=== PATIENT | female | born 1940 | race Native Hawaiian/Other Pacific Islander ===

== ENCOUNTER → 2017-11-09 13:05 | Outpatient (REF) | payer OTHER, SELFPAY ==
[2017-11-09 13:14] LABS: Appearance Urine UA CLEAR; Bilirubin Urine UA NEGATIVE (NEGATIVE); Color Urine UA YELLOW; Glucose Urine UA NEGATIVE (Normal); Ketones Urine UA NEGATIVE (NEGATIVE); Leukocyte Esterase Urine UA NEGATIVE (NEGATIVE); Nitrite Urine UA Negative (Negative); Occult Blood Urine UA 1+ (Negative); Protein Urine UA NEGATIVE (Negative); Specific Gravity Urine UA 1.015 (1.000-1.035); Urobilinogen Urine UA 0.2 E.U./dL (0.2); pH Urine UA 6.5 (4.5-8.0)
[2017-11-09 13:50] LABS: RBC Urine 1-5/HPF (0-5/HPF); Squamous Epithelial Cell Urine 0-1 /HPF; WBC Urine 0-1/HPF (0-5/HPF)
[2017-11-09 13:51] LABS: Bacteria Urine Occasional (0-1); Culture Indicated Urine Cult Not Indicated
== END ==
LOC: LAB 13:05
PROVIDERS: Family Provider Family Medicine; PCP Family Medicine; Visit Provider Family Medicine
DX: R41.0 Disorientation, unspecified (principal); R30.0 Dysuria
CPT/HCPCS: 81001

== ENCOUNTER 2017-11-23 12:34 | Emergency (ER) | payer OTHER, SELFPAY ==
[2017-11-23] VITALS (11 sets, daily range): BP systolic 107–170; BP diastolic 51–75; PULSE 82–104; RESP 12–24; TEMP 37.3–37.7; O2SAT 94–100; BMI 22.6
--- NOTE | 2017-11-23 12:52 | DI.RAD.S_ITS ---
PROCEDURE: XR CHEST 1V INDICATIONS: suspected sepsis TECHNIQUE: One view of the chest was acquired. COMPARISON: [facility], , CHEST 1 VIEW, 01/04/2017, 5:29. FINDINGS: Surgical changes and devices: None. Lungs and pleura: No pleural effusions or pneumothorax. Lungs are clear. Mediastinum: Mediastinal contours appear normal. Heart size is normal. Bones and chest wall: No suspicious bony lesions. Overlying soft tissues appear unremarkable. IMPRESSION: Stable chest. No acute cardiopulmonary process is evident. Dictated by: Low Marrero M.D. on 11/23/2017 at 12:54 Approved by: Low Marrero M.D. on 11/23/2017 at 12:55
[2017-11-23] MEDS: SODIUM CHLORIDE 0.9% 1,000 ML 1000 ML IV ×2 (13:11→16:50)
[2017-11-23 13:16] LABS: Add Manual Diff / Slide Review NO; Basophils Percent Auto 0.5 % (0-2); Eosinophils Percent Auto 0.1 % (2-4); Hematocrit 36.6 % (36-46); Hemoglobin 12.6 g/dL (12.0-16.0); Lymphocytes Percent Auto 6.8 % (25-40); Mean Corpuscular HGB Conc 34.4 % (30-36); Mean Corpuscular Volume 87.2 fL (80-100); Monocytes Percent Auto 7.7 % (3-14); Neutrophils Absolute Auto 9900 /uL (3000-5900); Neutrophils Percent Auto 84.9 % (50-75); Platelet Count 209 X10^3/uL (150-400); Red Cell Distribution Width 15.1 % (11.6-14.8); White Blood Cell Count 11.6 X10^3/uL (4.5-11.0)
--- NOTE | 2017-11-23 13:19 | ED.WEAKNESS ---
HPI - Weakness General Chief complaint: Weakness Stated complaint: DIZZINESS,CONFUSION,WEAKNESS Time Seen by Provider: 11/23/17 13:00 Source: patient and family Mode of arrival: ambulatory Limitations: no limitations History of Present Illness HPI Narrative: Patient is a 77-year-old female presenting with decreasing mental status and weakness. She is an extremely poor historian. Her nephew is here with her. Stating that she has been weaker and more confused over the last 2 days. Today she woke up and was shivering cold he put her by the fireplace she then fell asleep and needed assistance going to the bathroom, which is abnormal. Says the she then had a temperature of 102?. She overall has no complaints. She is having regular bowel movements no real pain. She has a known type 1 choledochocyst. And 2015 she did not want surgery. 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 Related Data Home Medications Medication Instructions Recorded Confirmed aspirin 81 mg PO QDAY #0 07/09/16 11/23/17 Allergies Allergy/AdvReac Type Severity Reaction Status Date / Time shellfish derived Allergy Mild HIVES Verified 11/23/17 12:51 [SHELLFISH DERIVED] Review of Systems Review of Systems All systems reviewed & are unremarkable except as noted in HPI and below and unobtainable due to mental status (Poor historian) Constitutional Reports body ache(s) and Reports fever(s) (Reported 102 at home) ENT Ears, Nose, Mouth, and Throat: Denies change in voice, Denies neck pain and Denies sore throat Cardiovascular Denies chest pain, Denies irregular heart rhythm, Denies lightheadedness, Denies palpitations, Denies dyspnea, Denies dyspnea on exertion and Denies orthopnea Respiratory Denies cough, Denies dyspnea, Denies dyspnea on exertion and Denies wheezing Musculoskeletal Denies back pain, Denies joint swelling and Denies neck pain Integumentary/Breasts Denies pruritus, Denies erythema, Denies rash and Denies wounds Neurologic Reports confusion and Reports memory loss Psychiatric Reports confusion and Reports memory loss Endocrine Denies palpitations Allergic/Immunologic Denies wheezing PFSH Medical History Choledocholithiasis (Acute) Hypercholesteremia (Chronic Unknown) Surgical History History of tonsillectomy Status post surgery (09/22/15) Social History Smoking Status: Never smoker Exam Initial Vital Signs Initial Vital Signs: Vital Signs Temperature 99.6 F 11/23/17 12:45 Pulse Rate 104 H 11/23/17 12:45 Respiratory Rate 24 11/23/17 12:45 Blood Pressure 139/73 H 11/23/17 12:45 Pulse Oximetry 99 11/23/17 12:45 Const General: lethargic Nutritional Appearance: average body habitus Neck Neck: normal visual inspection, trachea midline, No lymphadenopathy, No midline deformity and No JVD Lymphatic: No lymphedema Chest Chest: normal inspection of the chest Resp Effort & Inspection: normal respiratory effort, able to speak in complete sentences, no respiratory distress and no use of accessory muscles Auscultation: clear to auscultation bilaterally, no rales, no rhonchi and no wheezes Cardio Rate: regular rate Rhythm: regular rhythm Heart Sounds: no click, no gallops, no murmurs and no rubs Pulses: normal peripheral pulses GI Inspection: non-distended Palpation: soft, no hepatosplenomegaly, No guarding, No pulsatile mass and tender (Mild right upper quadrant pain no guarding no rebound) Auscultation: normal bowel sounds Skin General: no rashes or lesions noted, No jaundice and No petechiae Neuro General: alert, awake, gait normal, no focal motor deficits and CN's II-XI intact bilaterally Cognition: abnormal cognition Speech: speech normal Motor: strength 5/5 throughout Sensory Exam: no sensory deficits noted Course Orders Ordered: ED Orders 11/23/17 12:52 XR chest 1V Stat Blood Culture Stat 11/23/17 13:01 Complete Blood Count AUTO DIFF Stat Comprehensive Metabolic Panel Stat Lactate (Lactic Acid) Stat Lipase Stat Partial Thromboplastin Time Stat Procalcitonin Stat Prothrombin Time INR Stat 11/23/17 14:23 CT abdomen pelvis w con Stat 11/23/17 14:30 Urine Microscopic Stat Sodium Chloride (Normal Saline 0.9%) 1,000 mls @ 200 mls/hr IV CONT VIDYA Last Admin: 11/23/17 18:25 Dose: 200 mls/hr Discontinued Medications Acetaminophen (Tylenol) 650 mg PO NOW ONE Stop: 11/23/17 16:31 Last Admin: 11/23/17 16:49 Dose: 650 mg Sodium Chloride (Normal Saline 0.9%) 1,000 mls @ 1,000 mls/hr IV BOLUS ONE Stop: 11/23/17 13:51 Last Infusion: 11/23/17 14:30 Dose: 0 mls/hr Admin: 11/23/17 13:11 Dose: 1,000 mls/hr Piperacillin/Tazobactam/Dextrose (Zosyn) 3.375 gm in 50 mls @ 100 mls/hr IV NOW ONE Stop: 11/23/17 16:23 Last Infusion: 11/23/17 16:50 Dose: 0 mls/hr Admin: 11/23/17 16:07 Dose: 100 mls/hr Sodium Chloride (Normal Saline 0.9%) 1,000 mls @ 1,000 mls/hr IV BOLUS ONE Stop: 11/23/17 17:28 Last Infusion: 11/23/17 18:07 Dose: 0 mls/hr Admin: 11/23/17 16:50 Dose: 1,000 mls/hr Morphine Sulfate (Morphine) 2 mg IV NOW ONE Stop: 11/23/17 17:25 Last Admin: 11/23/17 17:26 Dose: 2 mg Morphine Sulfate (Morphine) 2 mg IV NOW ONE Stop: 11/23/17 19:08 Last Admin: 11/23/17 19:28 Dose: 2 mg Consultations Consultation #1: Dr. Martha pino, general surgery [facility] has been consulted in regards to the CT result. All concerned that there may actually be infection in the the gallbladder. She will also need an ERCP which is unavailable here. Recommend transferring to further facility. Concern for ascending cholangitis. Vital Signs - 8 hr 11/23/17 12:45 11/23/17 13:07 11/23/17 13:45 Temperature 99.6 F Pulse Rate 104 H 104 H 92 H Respiratory Rate 24 22 15 Blood Pressure 139/73 H Blood Pressure [Right Arm] 143/75 H 130/57 H Pulse Oximetry 99 97 11/23/17 14:32 11/23/17 15:14 11/23/17 15:37 Temperature 99.1 F Pulse Rate 98 H 96 H Respiratory Rate 12 14 Blood Pressure Blood Pressure [Right Arm] 107/51 L 121/67 H Pulse Oximetry 99 94 11/23/17 16:16 11/23/17 16:45 11/23/17 17:41 Temperature 99.9 F H Pulse Rate 104 H 97 H 90 Respiratory Rate 22 21 12 Blood Pressure Blood Pressure [Right Arm] 144/72 H 123/52 H Pulse Oximetry 97 96 11/23/17 18:30 11/23/17 19:07 Temperature Pulse Rate 82 88 Respiratory Rate 13 23 Blood Pressure Blood Pressure [Right Arm] 130/70 H 170/66 H Pulse Oximetry 100 94 MDM - Weakness Lab Data Result diagrams: 11/23/17 13:01 11/23/17 13:01 Lab Results 11/23/17 11/23/17 11/23/17 Range/Units 13:01 13:01 13:01 WBC 11.6 H (4.5-11.0) X10^3/uL RBC 4.20 (4.0-5.2) X10^6/uL Hgb 12.6 (12.0-16.0) g/dL Hct 36.6 (36-46) % MCV 87.2 (80-100) fL MCH 30.0 (26-34) PG MCHC 34.4 (30-36) % RDW 15.1 H (11.6-14.8) % Plt Count 209 (150-400) X10^3/uL Neut % (Auto) 84.9 H (50-75) % Lymph % (Auto) 6.8 L (25-40) % Winkler % (Auto) 7.7 (3-14) % Eos % (Auto) 0.1 L (2-4) % Baso % (Auto) 0.5 (0-2) % Neut # (Auto) 9900 H (3928-8860) /uL PT 11.6 (10.1-12.7) SECONDS INR 1.1 (0.9-1.3) APTT 30 (26.4-36.2) SECONDS Sodium (137-145) mmol/L Potassium (3.4-5.1) mmol/L Chloride (98-107) mmol/L Carbon Dioxide (22-32) mmol/L BUN (7-17) mg/dL Creatinine (0.52-1.04) mg/dL Estimated GFR (>60) mL/min BUN/Creatinine Ratio (6-22) Glucose (80-110) mg/dL Lactate (0.7-2.1) mmol/L Calcium (8.4-10.2) mg/dL Total Bilirubin (0.2-1.3) mg/dL AST (14-36) IU/L ALT (9-52) IU/L Alkaline Phosphatase (38-126) U/L Total Protein (6.3-8.2) g/dL Albumin (3.5-5.0) g/dL Globulin (1.7-4.1) g/dL Albumin/Globulin Ratio (1.0-2.8) Lipase (23-300) U/L Procalcitonin 0.54 H (<0.5) ng/mL Urine RBC (0-5/HPF) Urine WBC (0-5/HPF) Urine Bacteria (None) Ur Culture Indicated? Micro UA Comment 11/23/17 11/23/17 11/23/17 Range/Units 13:01 13:01 14:30 WBC (4.5-11.0) X10^3/uL RBC (4.0-5.2) X10^6/uL Hgb (12.0-16.0) g/dL Hct (36-46) % MCV (80-100) fL MCH (26-34) PG MCHC (30-36) % RDW (11.6-14.8) % Plt Count (150-400) X10^3/uL Neut % (Auto) (50-75) % Lymph % (Auto) (25-40) % Winkler % (Auto) (3-14) % Eos % (Auto) (2-4) % Baso % (Auto) (0-2) % Neut # (Auto) (6976-5066) /uL PT (10.1-12.7) SECONDS INR (0.9-1.3) APTT (26.4-36.2) SECONDS Sodium 137 (137-145) mmol/L Potassium 3.9 (3.4-5.1) mmol/L Chloride 100 (98-107) mmol/L Carbon Dioxide 24 (22-32) mmol/L BUN 17 (7-17) mg/dL Creatinine 0.70 (0.52-1.04) mg/dL Estimated GFR > 60.0 (>60) mL/min BUN/Creatinine Ratio 24.3 H (6-22) Glucose 142 H (80-110) mg/dL Lactate 1.5 (0.7-2.1) mmol/L Calcium 9.5 (8.4-10.2) mg/dL Total Bilirubin 0.8 (0.2-1.3) mg/dL AST 103 H (14-36) IU/L ALT 87 H (9-52) IU/L Alkaline Phosphatase 224 H (38-126) U/L Total Protein 8.3 H (6.3-8.2) g/dL Albumin 4.1 (3.5-5.0) g/dL Globulin 4.2 H (1.7-4.1) g/dL Albumin/Globulin Ratio 1.0 (1.0-2.8) Lipase 174 (23-300) U/L Procalcitonin (<0.5) ng/mL Urine RBC 5-10/hpf H (0-5/HPF) Urine WBC None seen (0-5/HPF) Urine Bacteria None seen (None) Ur Culture Indicated? Cult not indicated Micro UA Comment Not Reportable Imaging Data CT scan - abdomen: Radiologist's impression: PROCEDURE: CT ABDOMEN PELVIS W CON INDICATIONS: Known gallstone now it is increasing pain and confusion TECHNIQUE: After the administration of intravenous contrast, 5 mm thick sections acquired from the diaphragm to the symphysis. 5 mm coronal and sagittal reformats were acquired. For radiation dose reduction, the following was used: automated exposure control, adjustment of mA and/or kV according to patient size. COMPARISON: [facility], US, ABDOMEN COMPLETE, 01/04/2017, 6:48. [facility], CT, ABDOMEN/PELVIS WITH CONTRAST, 07/09/2015, 11:38. FINDINGS: Image quality: Excellent. ABDOMEN: Lung bases: Lung bases are clear. Heart size is normal. Solid organs: Liver is normal in size. Hepatic cysts are unchanged. Gallbladder is mildly distended. The common bile duct is markedly distended, measuring 36 mm in greatest transverse dimension, compared to 18 mm on prior exam. There are multiple stones in the dependent duct. There is increased density in the distal duct. Significant intra-hepatic biliary dilation is present. Biliary system is non dilated. Pancreas demonstrates several foci of hypoattenuation, new compared to prior exam. The largest measures 7 mm. Spleen is normal in size and enhancement. No adrenal nodules. Kidneys demonstrate normal size and enhancement, without hydronephrosis. Peritoneum and bowel: Bowel loops demonstrate normal wall thickness and caliber. No free fluid or air. Nodes and vessels: No retroperitoneal or mesenteric adenopathy by size criteria. Aorta and inferior vena cava are normal in size. Miscellaneous: No ventral hernias. PELVIS: Genitourinary: Bladder wall thickness is normal. Miscellaneous: No inguinal hernias or adenopathy. Previously identified low attenuation focus within the right lower pelvis is no longer visualized. Bones: No suspicious bony lesions. No vertebral body compression fractures. IMPRESSION: 1. Markedly distended common bile duct with intrahepatic biliary dilation as described above. Stones are identified within the common bile duct as well as the distal portion near the stricture. Overall appearance is most suggestive of choledocholithiasis with obstruction. Further evaluation with MRCP may be obtained as clinically indicated. 2. Interval development of low attenuation foci within the pancreas as above without gross pancreatic ductal dilation. These are overall nonspecific in appearance. However, IPMT should be considered. Dictated by: Taylor Chen M.D. on 11/23/2017 at 14:48 Chest x-ray: Radiologist's impression: PROCEDURE: XR CHEST 1V INDICATIONS: suspected sepsis TECHNIQUE: One view of the chest was acquired. COMPARISON: [facility], CHEST 1 VIEW, 01/04/2017, 5:29. FINDINGS: Surgical changes and devices: None. Lungs and pleura: No pleural effusions or pneumothorax. Lungs are clear. Mediastinum: Mediastinal contours appear normal. Heart size is normal. Bones and chest wall: No suspicious bony lesions. Overlying soft tissues appear unremarkable. IMPRESSION: Stable chest. No acute cardiopulmonary process is evident. MDM Narrative Medical decision making narrative: Patient's history of increasing confusion last 2 days with her objective fever of 102 though she was in front of the fireplace and CT are concerning for acute ascending cholangitis. She does wince and appear to be in pain every time she moves. She is quite stoic and will not complain of pain. I do not believe her to be competent or understand that she needs surgery. Her nephew who says he is the durable power of marketing traffic coordinator she has no children her , who is now agreeable to surgery. I have now received records from previous visit it appears to be at [place]. 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 It looks is the they wanted to do a [place] however 1 week before the surgery the nephew said that she changed her mind and did not wanted. He now says that they are agreeable to this. I have spoken with [facility] surgery they are unable to do an ERCP something which she will also likely need. I have spoken with the [place] doctor who has agreed and help her arrange transfer down to [facility] [place]. She was initially becoming more tachycardic however IV fluid he have helped along with pain medication. She is not febrile in the ED she is given Tylenol to help pain. Patient certainly has concerning gallbladder, and will need further evaluation. Discharge Plan Departure Patient Disposition: [facility] Clinical Impression: Ascending cholangitis Prescriptions: No Action aspirin 81 MG tablet,delayed release (DR/EC) 81 mg PO QDAY Qty: 0 RF: 0
[2017-11-23 13:21] LABS: INR 1.1 (0.9-1.3); Prothrombin Time 11.6 SECONDS (10.1-12.7)
[2017-11-23 13:23] LABS: PTT Partial Thromboplastin Tim 30 SECONDS (26.4-36.2)
[2017-11-23 13:27] LABS: Alanine Aminotransferase 87 IU/L (9-52); Albumin 4.1 g/dL (3.5-5.0); Alkaline Phosphatase 224 U/L (38-126); Aspartate Aminotransferase 103 IU/L (14-36); BUN Creatinine Ratio 24.3 (6-22); Bilirubin Total 0.8 mg/dL (0.2-1.3); Blood Urea Nitrogen 17 mg/dL (7-17); Calcium 9.5 mg/dL (8.4-10.2); Carbon Dioxide 24 mmol/L (22-32); Chloride 100 mmol/L (98-107); Estimated Glomerular Filt Rate > 60.0 mL/min (>60); Globulin 4.2 g/dL (1.7-4.1); Glucose 142 mg/dL (80-110); HEMOLYSIS < 15 (0-50); Lactate (Lactic Acid) 1.5 mmol/L (0.7-2.1); Lipase 174 U/L (23-300); Potassium 3.9 mmol/L (3.4-5.1); Sodium 137 mmol/L (137-145); Total Protein 8.3 g/dL (6.3-8.2)
[2017-11-23 13:42] LABS: Procalcitonin 0.54 ng/mL (<0.5)
--- NOTE | 2017-11-23 14:23 | DI.CT.S_ITS ---
PROCEDURE: CT ABDOMEN PELVIS W CON INDICATIONS: Known gallstone now it is increasing pain and confusion TECHNIQUE: After the administration of intravenous contrast, 5 mm thick sections acquired from the diaphragm to the symphysis. 5 mm coronal and sagittal reformats were acquired. For radiation dose reduction, the following was used: automated exposure control, adjustment of mA and/or kV according to patient size. COMPARISON: [facility], US, ABDOMEN COMPLETE, 01/04/2017, 6:48. [facility], CT, ABDOMEN/PELVIS WITH CONTRAST, 07/09/2015, 11:38. FINDINGS: Image quality: Excellent. ABDOMEN: Lung bases: Lung bases are clear. Heart size is normal. Solid organs: Liver is normal in size. Hepatic cysts are unchanged. Gallbladder is mildly distended. The common bile duct is markedly distended, measuring 36 mm in greatest transverse dimension, compared to 18 mm on prior exam. There are multiple stones in the dependent duct. There is increased density in the distal duct. Significant intra-hepatic biliary dilation is present. Biliary system is non dilated. Pancreas demonstrates several foci of hypoattenuation, new compared to prior exam. The largest measures 7 mm. Spleen is normal in size and enhancement. No adrenal nodules. Kidneys demonstrate normal size and enhancement, without hydronephrosis. Peritoneum and bowel: Bowel loops demonstrate normal wall thickness and caliber. No free fluid or air. Nodes and vessels: No retroperitoneal or mesenteric adenopathy by size criteria. Aorta and inferior vena cava are normal in size. Miscellaneous: No ventral hernias. PELVIS: Genitourinary: Bladder wall thickness is normal. Miscellaneous: No inguinal hernias or adenopathy. Previously identified low attenuation focus within the right lower pelvis is no longer visualized. Bones: No suspicious bony lesions. No vertebral body compression fractures. IMPRESSION: 1. Markedly distended common bile duct with intrahepatic biliary dilation as described above. Stones are identified within the common bile duct as well as the distal portion near the stricture. Overall appearance is most suggestive of choledocholithiasis with obstruction. Further evaluation with MRCP may be obtained as clinically indicated. 2. Interval development of low attenuation foci within the pancreas as above without gross pancreatic ductal dilation. These are overall nonspecific in appearance. However, IPMT should be considered. Dictated by: Taylor Chen M.D. on 11/23/2017 at 14:48 Approved by: Taylor Chen M.D. on 11/23/2017 at 15:27
--- NOTE | 2017-11-23 14:29 | PC.NURSE ---
2 full asssit to get to commode. Unable to support weight. Continues to have no focal weakness.
[2017-11-23 14:38] LABS: Bacteria Urine None Seen; WBC Urine None Seen (0-5/HPF)
[2017-11-23 14:44] LABS: Culture Indicated Urine Cult Not Indicated; RBC Urine 5-10/HPF (0-5/HPF)
[2017-11-23] MEDS: PIPERACILLIN-TAZO 3.375 GM/50 ML FROZ.PIGGY IV (16:07)
--- NOTE | 2017-11-23 16:16 | PC.NURSE ---
Continues to deny pain but winces w/ movement. Continues to require full assist to get oob to commode. Repositioned for comfort, encouraged to call for needs.
[2017-11-23] MEDS: ACETAMINOPHEN 325 MG TABLET 650 MG PO (16:49)
[2017-11-23] MEDS: MORPHINE 4 MG/ML INJ 2 MG IV ×2 (17:26→19:28)
[2017-11-23] MEDS: SODIUM CHLORIDE 0.9% 1,000 ML 200 ML IV (18:25)
[2017-11-24 05:34] LABS: Acinetobacter baumannii Not Detected (Not Detect); Enterococcus species Not Detected (Not Detect); Listeria monocytogenes Not Detected (Not Detect); Staphylococcus species Not Detected (Not Detect); Streptococcus agalactiae (Gr B Not Detected (Not Detect); Streptococcus pneumonia Not Detected (Not Detect); Streptococcus pyogenes (Gr A) Not Detected (Not Detect); Streptococcus species Not Detected (Not Detect)
[2017-11-24 05:35] LABS: Enterobacter cloacae complex Not Detected (Not Detect); Enterobacteriaceae species Detected (Not Detect); KPC (carbapenem-resist gene) Not Detected (Not Detect); Proteus species Not Detected (Not Detect)
[2017-11-24 05:36] LABS: Candida albicans Not Detected (Not Detect); Candida glabrata Not Detected (Not Detect); Candida krusei Not Detected (Not Detect); Candida parapsilosis Not Detected (Not Detect); Candida tropicalis Not Detected (Not Detect); E. coli Detected (Not Detect); Haemophilus influenzae Not Detected (Not Detect); Neisseria meningitidis Not Detected (Not Detect); Pseudomonas aeruginosa Not Detected (Not Detect); Serratia marcescens Not Detected (Not Detect)
== END 2017-11-23 19:46 | disposition short-term general hospital (02) ==
PROVIDERS: Emergency Provider Emergency Medicine; Family Provider Family Medicine; PCP Family Medicine
DX: K83.0 Cholangitis (principal)
CPT/HCPCS: 36415; 36591; 71045; 74177; 80053; 81003; 81015; 83605; 83690; 84145; 85025; 85610; 85730; 87040; 87077; 87150; 87186; 87205; 96361; 96365; 96375; 96376; 99285; J2270; J2543; Q9967

== ENCOUNTER 2019-03-13 23:09 | Observation (INO) | payer OTHER, SELFPAY ==
--- NOTE | 2019-03-13 23:20 | ED_ITS ---
HPI - Dizziness General Chief Complaint: Syncope Stated Complaint: fall at home dizziness Time Seen by Provider: 03/13/19 23:16 Source: family Mode of arrival: Family Vehicle Limitations: altered mental status History of Present Illness HPI Narrative: The patient was at home with family. About 45 minutes prior to a rrival, she suddenly collapsed, falling from her chair to the floor. She has a history of dementia. She also has a history of intermittent dizziness. When she fell to the floor she was unresponsive. Her [id number] noted snoring sounds, but the patient was otherwise unresponsive. CPR was initiated, 911 was called. Her daughter thinks she was administering CPR for 5 minutes prior to EMS arriving. She stopped CPR to open the door when EMS arrived. At that time she noted that the patient was breathing normally. Paramedics arrived. Patient is awake and responsive. She arrives by private vehicle. The patient is now complaining of only chills. She denies recent illness. She has no headache, visual changes, or speech changes. She denies chest pain or palpitations. She has no dyspnea. She has no nausea vomiting. She denies peripheral weakness or numbness. Her family did not notice seizure-like activity. She has a history of memory issues. She has no history of stroke, TIA or cardiac issues. She does have dementia. She denies recent illness. Related Data Home Medications Medication Instructions Recorded Confirmed aspirin 81 mg PO QDAY #0 07/09/16 10/14/18 Previous Rx's Medication Instructions Recorded polymyxin B sulfate 10,000 2 drp OPHTHALMIC (EYE) QID #10 ml 10/14/18 unit-trimethoprim 1 mg/mL eye drops Allergies Allergy/AdvReac Type Severity Reaction Status Date / Time shellfish derived Allergy Mild HIVES Verified 10/14/18 18:29 [SHELLFISH DERIVED] Review of Systems Review of Systems ROS Unobtainable: All systems reviewed & are unremarkable except as noted in HPI and below Constitutional Constitutional: Denies chills, Denies fever(s), Denies headache(s), Denies lethargy, Reports snoring (See HPI) and Denies weakness Eyes Eyes: Denies change in vision and Denies loss of vision ENT Ears, Nose, Mouth, and Throat: Denies vertigo, Reports dizziness and Denies headache(s) Cardiovascular Cardiovascular: Denies chest pain, Denies irregular heart rhythm, Denies lightheadedness, Denies palpitations, Denies dyspnea and Denies orthopnea Respiratory Respiratory: Denies cough, Denies dyspnea and Reports snoring (See HPI) Gastrointestinal Gastrointestinal: Denies abdominal pain, Denies change in bowel habits, Denies diarrhea, Denies nausea and Denies vomiting Genitourinary Genitourinary: Denies flank pain, Denies urinary incontinence and Denies urinary urgency Musculoskeletal Musculoskeletal: Denies back pain, Denies numbness and Denies tingling Integumentary/Breasts Skin/Breast: Denies erythema, Denies rash and Denies wounds Neurologic Neurologic: Denies confusion, Denies vertigo, Reports dizziness, Denies headache (s), Denies loss of vision, Denies numbness, Denies tingling and Denies weakness Psychiatric Psychiatric: Denies anxiety, Denies confusion and Denies depression Endocrine Endocrine: Denies palpitations [facility] Medical History (Updated 03/14/19 @ 02:14 by Uri Brennan MD) Choledocholithiasis (Acute) Dementia (Acute) Dermoid cyst of right ovary (Resolved ~07/2015) Endometrial polyp (Resolved ~07/2015) Hypercholesteremia (Chronic Unknown) Surgical History History of tonsillectomy Hx of bilateral salpingo-oophorectomy (Resolved 09/2015) Hx of dilation and curettage (Resolved 09/2015) Status post surgery (09/22/15) Family History (System 12/23/17 @ 14:37 by Essence Finley) Brother Hypertension Father No problems noted. Mother No problems noted. Social History (System 12/23/17 @ 14:37 by Essence Finley) marital status: Smoking Status: Never smoker alcohol intake: never substance use type: does not use Family History Brother Hypertension Father No problems noted. Mother No problems noted. Social History marital status: household members: family Smoking Status: Never smoker alcohol intake: never substance use type: does not use Exam Initial Vital Signs Initial Vital Signs: Vital Signs Temperature 97.9 F 03/13/19 23:21 Pulse Rate 60 03/13/19 23:21 Respiratory Rate 18 03/13/19 23:21 Blood Pressure 121/58 L 03/13/19 23:21 Pulse Oximetry 96 03/13/19 23:21 Const General: cooperative and well developed Nutritional Appearance: well nourished Orientation: alert, awake, oriented to person, oriented to place, not oriented to time and confused Other: Her mental status is at baseline. [facility] Head: normocephalic and atraumatic Ears: external ears normal and TM's normal bilaterally Nose: external nose normal Face and sinus: sinuses nontender and face symmetric Mouth: oral mucosae normal and moist mucous membranes Throat: posterior oropharynx normal and tonsils normal Eyes General: appearance normal, both eyes and all related structures Eyelids: eyelids normal Conjunctivae: conjunctivae normal Sclera: sclerae normal Pupils: PERRL EOM: EOM intact bilaterally Neck Neck: normal visual inspection, trachea midline, No lymphadenopathy, No midline deformity and No JVD Lymphatic: No lymphedema Chest Chest: normal inspection of the chest Resp Effort & Inspection: normal respiratory effort, able to speak in complete sentences, no respiratory distress and no use of accessory muscles Auscultation: clear to auscultation bilaterally, no rales, no rhonchi and no wheezes Cardio Rate: regular rate Rhythm: regular rhythm Heart Sounds: no click, no gallops, no murmurs and no rubs Pulses: normal peripheral pulses GI Inspection: non-distended Palpation: soft, no hepatosplenomegaly, No guarding, No pulsatile mass and No tender Auscultation: normal bowel sounds Back/Spine/Pelvis Back: No back tenderness and No CVA tenderness Skin General: no rashes or lesions noted and No petechiae Neuro General: alert, oriented (Person and place) and no focal motor deficits Speech: speech normal Motor: muscle tone normal throughout Sensory Exam: no sensory deficits noted Extrem General: full ROM, no pedal edema and no calf tenderness Psych Appearance: well kempt Mental Status: mental status grossly normal Attitude: cooperative Thought Content: normal Course Course Course Narrative: The patient has been asymptomatic since arrival. Although CPR was initiated, it is unclear if it was necessary. She arrived POV. She has been alert, and asymptomatic since arrival. There is no evidence of acute neurologic deficits. There is no suggestion of seizure at the scene. There is no evidence of arrhythmia on the monitoring done here in the ER. She has no significant electrolyte abnormalities. She will be admitted to the hospitalist, ADRIANA Dickson. Orders Ordered: ED Orders 03/13/19 23:30 EKG-12 Lead Stat 03/13/19 23:31 CT head/brain wo con Stat XR chest 1V Stat 03/13/19 23:40 Complete Blood Count AUTO DIFF Stat Comprehensive Metabolic Panel Stat Magnesium Stat Prothrombin Time INR Stat Troponin & CK Cardiac Panel Stat 03/14/19 EKG-12 Lead Stat 03/14/19 02:02 Prolactin Stat Acetaminophen (Tylenol) 650 mg PO Q6HR PRN PRN Reason: As Needed for Fever/Mild Pain Hydrocodone Bitart/Acetaminophen ([place] 5/325) 1 tab PO Q4HR PRN PRN Reason: Pain, Moderate (4-6) Al Hydrox/Mg Hydrox/Simethicone (Maalox Plus) 30 ml PO Q6HR PRN PRN Reason: Dyspepsia Bisacodyl (Dulcolax) 10 mg DC DAILY PRN PRN Reason: Constipation Calcium Carbonate (Tums) 1,000 mg PO Q4HR PRN PRN Reason: Dyspepsia Docusate Sodium (Colace) 100 mg PO BID PRN PRN Reason: Constipation Ondansetron HCl (Zofran Odt) 4 mg PO Q8HR PRN PRN Reason: Nausea And Vomiting Vital Signs Vital signs: Vital Signs - 8 hr 03/13/19 23:21 03/14/19 01:00 03/14/19 01:30 Temperature 97.9 F Pulse Rate 60 72 72 Respiratory Rate 18 16 14 Blood Pressure 121/58 L Blood Pressure [Left Arm] 101/42 L 121/59 L Pulse Oximetry 96 99 100 03/14/19 02:00 Temperature Pulse Rate 66 Respiratory Rate 15 Blood Pressure Blood Pressure [Left Arm] 107/57 L Pulse Oximetry 100 MDM - Dizziness Lab Data Result diagrams: 03/13/19 23:40 03/13/19 23:40 Labs: Lab Results 03/13/19 03/13/19 03/13/19 Range/Units 23:40 23:40 23:40 WBC 6.2 (4.5-11.0) X10^3/uL RBC 4.18 (4.0-5.2) X10^6/uL Hgb 12.4 (12.0-16.0) g/dL Hct 37.1 (36-46) % MCV 88.7 (80-100) fL MCH 29.6 (26-34) PG MCHC 33.4 (30-36) % RDW 15.0 H (11.6-14.8) % Plt Count 190 (150-400) X10^3/uL Neut % (Auto) 48.3 L (50-75) % Lymph % (Auto) 38.6 (25-40) % [place] % (Auto) 8.1 (3-14) % Eos % (Auto) 3.6 (2-4) % Baso % (Auto) 1.4 (0-2) % Neut # (Auto) 3000 (9523-7484) /uL Lymph # (Auto) 2400 (8554-3140) /uL [place] # (Auto) 500 (0-900) /uL Eos # (Auto) 200 (0-450) /uL Baso # (Auto) 100 (0-100) /uL PT 11.6 (10.1-12.7) SECONDS INR 1.0 (0.9-1.3) Sodium 140 (137-145) mmol/L Potassium 4.4 (3.4-5.1) mmol/L Chloride 103 (98-107) mmol/L Carbon Dioxide 30 (22-32) mmol/L BUN 15 (7-17) mg/dL Creatinine 1.00 (0.52-1.04) mg/dL Estimated GFR 53.6 L (>60) mL/min BUN/Creatinine Ratio 15.0 (6-22) Glucose 114 H (80-110) mg/dL Calcium 9.4 (8.4-10.2) mg/dL Magnesium 2.2 (1.6-2.3) mg/dL Total Bilirubin 0.4 (0.2-1.3) mg/dL AST 19 (14-36) IU/L ALT < 6 L (9-52) IU/L Alkaline Phosphatase 84 (38-126) U/L Total Creatine Kinase 61 (30-135) U/L CK-MB (CK-2) TNP CK-MB (CK-2) Rel Index TNP Troponin I < 0.012 (0.01-0.034) ng/mL Total Protein 7.6 (6.3-8.2) g/dL Albumin 3.9 (3.5-5.0) g/dL Globulin 3.7 (1.7-4.1) g/dL Albumin/Globulin Ratio 1.1 (1.0-2.8) Prolactin (3.0-18.6) ng/mL 03/13/19 Range/Units 23:40 WBC (4.5-11.0) X10^3/uL RBC (4.0-5.2) X10^6/uL Hgb (12.0-16.0) g/dL Hct (36-46) % MCV (80-100) fL MCH (26-34) PG MCHC (30-36) % RDW (11.6-14.8) % Plt Count (150-400) X10^3/uL Neut % (Auto) (50-75) % Lymph % (Auto) (25-40) % [place] % (Auto) (3-14) % Eos % (Auto) (2-4) % Baso % (Auto) (0-2) % Neut # (Auto) (0745-4309) /uL Lymph # (Auto) (4429-4477) /uL [place] # (Auto) (0-900) /uL Eos # (Auto) (0-450) /uL Baso # (Auto) (0-100) /uL PT (10.1-12.7) SECONDS INR (0.9-1.3) Sodium (137-145) mmol/L Potassium (3.4-5.1) mmol/L Chloride (98-107) mmol/L Carbon Dioxide (22-32) mmol/L BUN (7-17) mg/dL Creatinine (0.52-1.04) mg/dL Estimated GFR (>60) mL/min BUN/Creatinine Ratio (6-22) Glucose (80-110) mg/dL Calcium (8.4-10.2) mg/dL Magnesium (1.6-2.3) mg/dL Total Bilirubin (0.2-1.3) mg/dL AST (14-36) IU/L ALT (9-52) IU/L Alkaline Phosphatase (38-126) U/L Total Creatine Kinase (30-135) U/L CK-MB (CK-2) CK-MB (CK-2) Rel Index Troponin I (0.01-0.034) ng/mL Total Protein (6.3-8.2) g/dL Albumin (3.5-5.0) g/dL Globulin (1.7-4.1) g/dL Albumin/Globulin Ratio (1.0-2.8) Prolactin 42.2 H (3.0-18.6) ng/mL Imaging Data Chest x-ray: Attestation: I personally reviewed and interpreted this imaging study as follows: My impression: Normal CT scan - head: Radiologist's impression: No acute findings. ECG Data Attestation: I personally reviewed and interpreted this ECG as follows: (Normal sinus rhythm rate 66 beats per minute. Normal intervals. No ectopy. Normal study.) Critical Care Time Critical Care Time Critical Care Time: Yes Total Critical Care Time: 45 Attestation: Care included initial evaluation, and history from the patient and her family. Care included review of past medical records, evaluation of lab and radiology information, discussion of admission decision with the family, and consultation with the admitting hospitalist. Discharge Plan Departure Patient Disposition: Admitted as Observation Clinical Impression: Syncope Qualifiers: Syncope type: unspecified Qualified Code(s): R55 - Syncope and collapse Discharge Date/Time: 03/14/19 02:28 Admit Date/Time: 03/14/19 02:03 Admit Provider: Ayan Dickson
[2019-03-13 23:21] VITALS: BP 121/58; PULSE 60; RESP 18; TEMP 36.6; O2SAT 96
--- NOTE | 2019-03-13 23:30 | PC.NURSE ---
Her nephew said she falls frequently,at least once a month,and she has dementia,she apparently slumped to floor from kitchen table tonight.She was noted to be snoringand her niece started cpr,because I am trained in itshe said.Medics were on scene and she came her POV.
--- NOTE | 2019-03-13 23:31 | DI.CT.S_ITS ---
PROCEDURE: CT HEAD/BRAIN WO CON INDICATIONS: Syncope TECHNIQUE: Noncontrast 4.5 mm thick angled axial sections acquired from the foramen magnum to the vertex, with coronal and sagittal reformats. For radiation dose reduction, the following was used: automated exposure control, adjustment of mA and/or kV according to patient size. COMPARISON: [facility], CT, HEAD WITHOUT CONTRAST, 07/09/2016, 18:45. [facility], MR, MR BRAIN WITHOUT CONTRAST, 12/21/2018, 8:45. FINDINGS: Image quality: Excellent. CSF spaces: Basal cisterns are patent. No extra-axial fluid collections. Mild ventriculomegaly is noted which is stable compared to prior exams. Brain: No intracranial bleeds or masses. There is cerebral volume loss for age, with resultant ventricular and sulcal prominence. There are periventricular and deep white matter chronic small vessel ischemic changes. There is intracranial internal carotid artery and vertebral artery atherosclerosis. Skull and face: Calvarium and visualized facial bones appear intact, without suspicious lesions. Sinuses: Visualized sinuses and mastoids are clear. IMPRESSION: No acute intracranial disease process. Dictated by: Madeleine Tomlin MD, PhD on 03/14/2019 at 7:07 Approved by: Madeleine Tomlin MD, PhD on 03/14/2019 at 7:09
--- NOTE | 2019-03-13 23:31 | DI.RAD.S_ITS ---
PROCEDURE: XR CHEST 1V INDICATIONS: Syncope TECHNIQUE: One view of the chest was acquired. COMPARISON: [facility], CR, XR CHEST 1V, 11/23/2017, 13:09. FINDINGS: Surgical changes and devices: None. Lungs and pleura: Lungs are clear. Small left-sided pleural effusion. No pneumothorax. Mediastinum: Mediastinal contours appear normal. Heart size is normal. Bones and chest wall: No suspicious bony lesions. Overlying soft tissues appear unremarkable. IMPRESSION: Small left-sided pleural effusion. Dictated by: Madeleine Tomlin MD, PhD on 03/14/2019 at 7:59 Approved by: Madeleine Tomlin MD, PhD on 03/14/2019 at 8:00
[2019-03-13 23:53] LABS: Add Manual Diff / Slide Review NO; Basophils Absolute Auto 100 /uL (0-100); Basophils Percent Auto 1.4 % (0-2); Eosinophils Absolute Auto 200 /uL (0-450); Eosinophils Percent Auto 3.6 % (2-4); Hematocrit 37.1 % (36-46); Hemoglobin 12.4 g/dL (12.0-16.0); Lymphocytes Absolute Auto 2400 /uL (1100-4500); Lymphocytes Percent Auto 38.6 % (25-40); Mean Corpuscular HGB Conc 33.4 % (30-36); Mean Corpuscular Hemoglobin 29.6 PG (26-34); Mean Corpuscular Volume 88.7 fL (80-100); Monocytes Absolute Auto 500 /uL (0-900); Monocytes Percent Auto 8.1 % (3-14); Neutrophils Absolute Auto 3000 /uL (1500-7000); Neutrophils Percent Auto 48.3 % (50-75); Platelet Count 190 X10^3/uL (150-400); Red Blood Cell Count 4.18 X10^6/uL (4.0-5.2); White Blood Cell Count 6.2 X10^3/uL (4.5-11.0)
[2019-03-13 23:58] LABS: Prothrombin Time 11.6 SECONDS (10.1-12.7)
[2019-03-14] VITALS (15 sets, daily range): BP systolic 101–154; BP diastolic 42–96; PULSE 62–81; RESP 14–19; TEMP 35.9–36.8; O2SAT 95–100; BMI 24.9
[2019-03-14 00:02] LABS: Albumin 3.9 g/dL (3.5-5.0); Albumin Globulin Ratio 1.1 (1.0-2.8); Alkaline Phosphatase 84 U/L (38-126); Aspartate Aminotransferase 19 IU/L (14-36); Bilirubin Total 0.4 mg/dL (0.2-1.3); Blood Urea Nitrogen 15 mg/dL (7-17); Calcium 9.4 mg/dL (8.4-10.2); Carbon Dioxide 30 mmol/L (22-32); Chloride 103 mmol/L (98-107); Creatine Kinase 61 U/L (30-135); Estimated Glomerular Filt Rate 53.6 mL/min (>60); Globulin 3.7 g/dL (1.7-4.1); Glucose 114 mg/dL (80-110); HEMOLYSIS < 15 (0-50); Magnesium 2.2 mg/dL (1.6-2.3); Potassium 4.4 mmol/L (3.4-5.1); Sodium 140 mmol/L (137-145); Total Protein 7.6 g/dL (6.3-8.2)
[2019-03-14 00:04] LABS: Alanine Aminotransferase < 6 IU/L (9-52)
[2019-03-14 00:14] LABS: Troponin I < 0.012 ng/mL (0.01-0.034)
[2019-03-14 02:33] LABS: Prolactin 42.2 ng/mL (3.0-18.6)
--- NOTE | 2019-03-14 04:01 | DI.MRI.S_ITS ---
PROCEDURE: MR HEAD/BRAIN WO/W CON INDICATIONS: Syncope, possible seizure. TECHNIQUE: Noncontrast axial T1 spin echo, axial T2 fast spin echo, sagittal and axial FLAIR, coronal T2 fast spin echo, axial gradient echo, axial diffusion and ADC through the brain. Thin section coronal T2-weighted images were performed through the hip [place]. After the administration of contrast, axial and coronal T1 spin echo with fat saturation through the brain. COMPARISON: [facility], CT, HEAD WITHOUT CONTRAST, 07/09/2016, 18:45. [facility], CT, CT HEAD/BRAIN WO CON, 03/13/2019, 23:32. FINDINGS: Image quality: Excellent. CSF spaces: Basal cisterns are patent. No extra-axial fluid collections. Ventricles are normal in size and shape. Brain: No midline shift. No intracranial bleeds or masses. No abnormal intracranial enhancement. There is cerebral volume loss for age. There is periventricular white matter chronic small vessel ischemic change. The brainstem appears normal. Diffusion-weighted images demonstrate no acute ischemic insults. No chronic ischemic insults. Normal intravascular flow voids are present. In this patient with this given history, scrutiny is given to the hippocampal regions. No focal lesions are seen. Skull and face: Calvarial marrow is normal in signal. Orbits appear normal. Sinuses: Sinuses and mastoids appear clear. IMPRESSION: No findings of acute or subacute infarction can be seen. Note is made of age-appropriate brain parenchymal volume loss and chronic small vessel ischemic changes. No masses or abnormal enhancement can be seen. Dictated by: Rafiq Toledo M.D. on 03/14/2019 at 9:47 Approved by: Rafiq Toledo M.D. on 03/14/2019 at 9:50
--- NOTE | 2019-03-14 04:04 | PM.HP.1 ---
History of Present Illness History of Present Illness Date Patient Seen: 03/14/19 Time Patient Seen: 02:40 Chief complaint: fall at home dizziness Narrative: Ms. 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 Per report the patient's niece Debbie who is primary caregiver, the patient was sitting in a chair and she was in another room she heard noise and found the patient slumped over unresponsive. She states she sat time she began snoring heavily and moved her to the floor. Apparently she did CPR until arrival of EMS at which time the patient was noted to be breathing adequately. Debbie states that she had no prodromal symptoms of headaches, dizziness or visual changes and had been at her functional baseline. Following the syncopal episode the patient complained of dizziness and nausea. The patient has had prior episodes of dizziness has had progressive dementia requiring 24 hour care provided by her niece and nephew in law. Patient denies complaints of headaches, visual changes, difficulty chewing or swallowing. She has no chest pain or palpitations, denies shortness of breath cough or wheezing. She has no abdominal pain presently denies nausea or vomiting and has no changes in bowel or bladder habits. Upon arrival to the ER the patient is afebrile with a temperature 97.9? with a heart rate of 60, blood pressure 121/58 with respirations of 18 saturating 96% on room air. A 12 lead EKG is obtained which finds a sinus rhythm with ventricular rate of 66 without ectopy without indications of PA or ischemia. Chest x-ray was taken which shows no acute cardiopulmonary process as well as CT of the head with no intracranial pathology noted. On laboratory analysis she has white count of 6.2, hemoglobin of 12.4 hematocrit 37.1 with platelets 190. Her electrolytes are within normal limits she has a BUN of 15 and creatinine 1.0. Her nonfasting glucose is 114. Her magnesium is 2.2. Her LFTs are all within normal limits she has a negative troponin at less than 0.012 and coags are unremarkable. Requested prolactin level which is found to be elevated at 42.2. The patient is admitted to the hospital for syncopal episode of unclear etiology possible seizure. Patient History Medical History (Updated 03/14/19 @ 04:30 by ADRIANA Ramos) Choledocholithiasis (Acute) Dementia (Acute) Dermoid cyst of right ovary (Resolved ~07/2015) Endometrial polyp (Resolved ~07/2015) Hypercholesteremia (Chronic Unknown) Papillary mass of biliary tract (Acute) Surgical History (Updated 03/14/19 @ 04:40 by ADRIANA Ramos) History of ERCP (Acute) History of tonsillectomy Hx of bilateral salpingo-oophorectomy (Resolved 09/2015) Hx of dilation and curettage (Resolved 09/2015) Status post surgery (09/22/15) Family History Brother Hypertension Father No problems noted. Mother No problems noted. Social History marital status: household members: family Smoking Status: Never smoker alcohol intake: never substance use type: does not use Family & Social History Family History Brother Hypertension Father No problems noted. Mother No problems noted. Social History: household members family Prior Living Arrangements House Safety & Behavioral: Feels Safe in Current Yes Environment Been Physically Hurt or No Threatened By a Person Suicidal Ideation Description None Tobacco & Substance use: Smoking Status Never smoker alcohol intake never alcohol intake frequency 0-2 drinks per day Substance Use Type does not use Comment: The patient is lives in a single family home. Her niece and nephew in law have moved in with her to provide 24 hour care. No family history of cancer, hypertension or diabetes. Occupation: Retired registered nurse Smoking: Patient has not use tobacco products. Alcohol: Patient does not consume alcohol. Substance use: Patient denies recreational pharmaceuticals, herbal or cannabis products. Advanced directives: The patient has previously expressed her desire to be FULL CODE. The patient has a POLST form but not present for review. Patient is not in a frame of mind be able to designate surrogate decision maker. Her primary contact lens lathe operator is her niece Debbie. Meds Home Medications and Allergies Home Medications Medication Instructions Recorded Confirmed Type aspirin 81 mg PO QDAY #0 07/09/16 10/14/18 History Allergies Allergy/AdvReac Type Severity Reaction Status Date / Time shellfish derived Allergy Mild HIVES Verified 10/14/18 18:29 [SHELLFISH DERIVED] Review of Systems Review of Systems ROS Unobtainable: All systems reviewed & are unremarkable except as noted in HPI and below and unobtainable due to mental condition (The patient is unreliable historian, additional info obtained from niece.) Exam Vital Signs (past 8 hours): - 03/13/19 23:21 03/14/19 01:00 03/14/19 01:30 Temperature 97.9 F Pulse Rate 60 72 72 Respiratory Rate 18 16 14 Blood Pressure 121/58 L Blood Pressure [Left Arm] 101/42 L 121/59 L Pulse Oximetry 96 99 100 03/14/19 02:00 03/14/19 02:40 Temperature 97.6 F Pulse Rate 66 73 Respiratory Rate 15 19 Blood Pressure 144/72 H Blood Pressure [Left Arm] 107/57 L Pulse Oximetry 100 100 Oxygen Delivery Method Room Air Narrative Exam Narrative: GENERAL APPEARANCE: well developed, adequately nourished, BMI of 24.9, in no acute distress. HEENT: Normocephalic, atraumatic, PERRLA, conjunctiva clear, no rhinorrhea, mucous membranes are moist and pink without lesions or exudate. NECK/THYROID: neck supple, no JVD, trachea midline. LYMPH NODES: no cervical or supraclavicular lymphadenopathy. SKIN: warm and dry, no suspicious lesions, no visible rashes, ulcerations or bruises. HEART: regular rate and rhythm, S1-S2, no murmur, no rubs or gallops, brisk capillary refill, no edema LUNGS: clear to auscultation bilaterally, no coarseness crackles or wheezing, no cough present CHEST: Symmetrical movement, no accessory muscle use, no pain to AP and lateral compression. ABDOMEN: Soft, no distention, no abdominal tenderness, no organomegaly, active bowel tones. BACK: Normal curvature, nontender. EXTREMITIES: moves all extremities, strength is 4/5 and symmetrical, no deformities or joint effusions. NEUROLOGIC: Alert to person and place, cranial nerves II-XII grossly intact, sensation intact to light touch, disequilibrium, ataxic gait. PSYCH: Patient is alert and confused with impaired memory and recall. Objective Labs Result Diagrams: 03/13/19 23:40 03/13/19 23:40 Labs: Laboratory Results - last 24 hr 03/13/19 03/13/19 03/13/19 23:40 23:40 23:40 WBC 6.2 RBC 4.18 Hgb 12.4 Hct 37.1 MCV 88.7 MCH 29.6 MCHC 33.4 RDW 15.0 H Plt Count 190 Neut % (Auto) 48.3 L Lymph % (Auto) 38.6 [place] % (Auto) 8.1 Eos % (Auto) 3.6 Baso % (Auto) 1.4 Neut # (Auto) 3000 Lymph # (Auto) 2400 [place] # (Auto) 500 Eos # (Auto) 200 Baso # (Auto) 100 PT 11.6 INR 1.0 Sodium 140 Potassium 4.4 Chloride 103 Carbon Dioxide 30 BUN 15 Creatinine 1.00 Estimated GFR 53.6 L BUN/Creatinine Ratio 15.0 Glucose 114 H Calcium 9.4 Magnesium 2.2 Total Bilirubin 0.4 AST 19 ALT < 6 L Alkaline Phosphatase 84 Total Creatine Kinase 61 CK-MB (CK-2) TNP CK-MB (CK-2) Rel Index TNP Troponin I < 0.012 Total Protein 7.6 Albumin 3.9 Globulin 3.7 Albumin/Globulin Ratio 1.1 Prolactin 03/13/19 23:40 WBC RBC Hgb Hct MCV MCH MCHC RDW Plt Count Neut % (Auto) Lymph % (Auto) [place] % (Auto) Eos % (Auto) Baso % (Auto) Neut # (Auto) Lymph # (Auto) [place] # (Auto) Eos # (Auto) Baso # (Auto) PT INR Sodium Potassium Chloride Carbon Dioxide BUN Creatinine Estimated GFR BUN/Creatinine Ratio Glucose Calcium Magnesium Total Bilirubin AST ALT Alkaline Phosphatase Total Creatine Kinase CK-MB (CK-2) CK-MB (CK-2) Rel Index Troponin I Total Protein Albumin Globulin Albumin/Globulin Ratio Prolactin 42.2 H Assessment & Plan Assessment & Plan narrative: This is a 70-year-old female patient who sustained a syncopal episode lasting approximately 5 minutes. During that time bystander CPR took place. Patient has regained to baseline mentation which is confused consistent with her history of dementia. 1. Syncopal episode, unknown etiology, resolved upon arrival, active. -patient with no prodromal symptoms and complaint of nausea and dizziness after the event. -patient regained consciousness and it sounds as though she was more confused than usual but had returned to baseline prior to arrival in the ER. -patient denies complaints of chest pain, palpitations or shortness of breath. No prior history of syncopal events. -lab findings are all noncontributory to identification of etiology except for an elevated prolactin at 42.2 reason concern for possible seizure, though no seizure activity was noted. Unable to tell if patient is incontinent since she wears a brief -seizure precautions are initiated, neuro checks every 4 hours. -will obtain an MR of the head with and without. -patient will remain on telemetry. 2. Dementia, unknown type, probable vascular, present on admission, active -it is unclear what meds the patient is taking, family will bring in medications in the morning. Will update the medical record at that time. -patient remains cooperative but confused and has a history of wandering. -fall precautions are instituted. 3. Hyperlipidemia, chronic, presumed stable -will evaluate home medications when family brings them in the morning. The patient is admitted to the hospital due to the severity of her symptoms and risk for potential complications and adverse events. She is admitted as observation status expected length of stay less than 2 midnights. Scores GCS [place] coma scale eye opening: Spontaneous [place] coma scale verbal response: Confused [place] coma scale motor response: Obey commands [place] coma scale total score: 14 Citation: Baseline mentation per report of bk at bedside. Quality VTE Deep Vein Thrombosis/Pulmonary Embolism Present on Admission: Yes
[2019-03-14 06:02] LABS: BUN Creatinine Ratio 16.7 (6-22); Blood Urea Nitrogen 15 mg/dL (7-17); Calcium 9.4 mg/dL (8.4-10.2); Carbon Dioxide 28 mmol/L (22-32); Chloride 107 mmol/L (98-107); Estimated Glomerular Filt Rate > 60.0 mL/min (>60); Glucose 97 mg/dL (80-110); HEMOLYSIS < 15 (0-50); Potassium 4.6 mmol/L (3.4-5.1); Sodium 140 mmol/L (137-145)
--- NOTE | 2019-03-14 11:09 | CM.DANOTE ---
DCP: Case received, EMR reviewed and met with patient. Introduced self and role. Was able to get some information from patient in her room, attempted to reach nephew, was meeting with hospitalist, will attempt later. DCP template/assessment, completed with information currently available. Patient is a 78 year old female who admitted early this morning to the care of the hospitalist team. PCP: Dr. Longo. Payer: confirmed: [facility]. Patient came to the hospital via family vehicle secondary to a fall at home. According to note, patient had been given CPR, for she was unresponsive and having some respiratory distress. She was breathing with pulse when she arrived here at hospital. Patient here for observation for possible seizure. She will be having a brain MRI today. Met with patient in her room, briefly. Family was not in room at the time, she was up in chair having her breakfast. Patient pleasant, has history of dementia, but patient was able to confirm with this development planner that she resides with her niece and nephew in-law. She also has a walker at home, and patient stated, she just started using it. Patient stated, she is from the [facility], and had recently been there visiting with family:. Called nephew, Agata, but he was speaking to hospitalist. Aric, is patient's niece, and primary caregiver. Had attempted to call Devin Ndiaye, but phone is out of service. Patient is a retired RN, used to work at this hospital. She has a history of dementia. P: DCP to continue to follow, and will reach out to family for any needs at discharge. Sushila Pitts RN/Music Promoter
--- NOTE | 2019-03-14 11:59 | PT.IIE ---
Surgical History (Last Updated 03/14/19 @ 04:40 by ADRIANA Ramos) History of ERCP (Acute) History of tonsillectomy Hx of bilateral salpingo-oophorectomy (Resolved 09/2015) Hx of dilation and curettage (Resolved 09/2015) Status post surgery (09/22/15) Medical History (Last Updated 03/14/19 @ 04:30 by ADRIANA Ramos) Choledocholithiasis (Acute) Dementia (Acute) Dermoid cyst of right ovary (Resolved ~07/2015) Endometrial polyp (Resolved ~07/2015) Hypercholesteremia (Chronic Unknown) Papillary mass of biliary tract (Acute) Physical Therapy Inpatient Evaluation/Re-Eval M1 PT/OT-IP Prior Functional Status Start: 03/14/19 08:16 Freq: NEEDED Status: Active Protocol: Document 03/14/19 11:39 (Rec: 03/14/19 11:58 [id number]) Medical Review Prior Functional Status Medical History Reviewed Yes Diet/Fluid Consistency Regular Communication Pt has dementia at baseline. Nephew stated pt has very poor short term memory but able to communicate with simple questions and make needs known . Mobility and Gait Nephew stated pt has poor balance at baseline. Often showed poor judgment for depth perception who tends to reach for objects that far from her base of support. Pt uses furnitures to cruise and does not like to use walker. Pt is mostly home bound and nephew tends to hand held assist for all mobility. Activities of Daily Living and IADL's Pt's nephew assist in all ADLs with CONCRETE PAVEMENT INSTALLER due to poor balance, and nephew/ nephew in law assist in IADLs. Social History Household Members family Living Arrangements House Number of Floors (Floors) One Floor Number of Stairs To Enter/Railing? 1 ISAÍAS without rail Home Environment Standard Height Toilet,Tub/ Shower Home Equipment Front Wheel Walker,Four Wheel Walker,Straight Cane,Manual Wheelchair,Shower Seat without Backrest,Grab Bars In Shower Employment Status Retired Additional Social History Comment Pt lives with her nephew and nephew in law. Pt's nephew worked as a CG in [employer] for 19 years and recently quite to be pt's CG. Pt's nephew in law is also a CG when nephew is not home. They report pt fell approx once a month. M2 PT-IP Current Condition Start: 03/14/19 08:16 Freq: NEEDED Status: Active Protocol: Document 03/14/19 11:39 HH (Rec: 03/14/19 11:58 [email or web address]) Physical Therapy Current Condition Current Condition Evaluation Date 03/14/19 Treatment Diagnosis Syncope with unknown etiology, AMS, dementia Onset Date 03/13/19 Weight Bearing Status Weight Bearing Status Full Weight Bearing M3 PT-IP Subjective Start: 03/14/19 08:16 Freq: NEEDED Status: Active Protocol: Document 03/14/19 11:39 HH (Rec: 03/14/19 11:58 [email or web address]) Subjective Physical Therapy Visit Type Type Initial Evaluation Visit Start Time 11:10 Visit Stop Time 11:35 Total Visit Minutes 25 Notes Pt's nephew and nephew in law attended session and answered questions Number of RETINA SUBSPECIALIST Visits 0 Physical Therapy Visit Comments Patient Comments Im feeling fine. Pt's nephew stated that pt is at baseline regarding mobility. Patient Goals to return home with family Therapy Pain Assessment Pain Present Pain Present Denied Pain M4 PT-IP Mobility and Gait Start: 03/14/19 08:16 Freq: NEEDED Status: Active Protocol: Document 03/14/19 11:39 HH (Rec: 03/14/19 11:58 [email or web address]) PT-Transfer Assessment Sit to and From Stand Sit to and from Stand Contact Guard Assistance,Use of Upper Extremities Equipment Transfer Assistive Device Gait Belt,Front Wheeled Walker Orthotic/Prosthetic Devices or Brace: No Transfers Transfer Destination Bed,Chair Transfer Technique Stand Step Pivot Transfer Ability Level of Assist Contact Guard Assistance,Use of Upper Extremities Comments Mobility Comments Pt up in chair upon assessment . Pt's BP maintained at 140- 150s/70s pre/post mobility. Pt was able to stand up from chair CGA with FWW. Pt tends to have her FWW far away from her COG, especially during turns. She also has poor feet clearance L worse than R, along with limited heel strikes. Pt tends to use wall/ counter and chair armrest for support during transfers/ ambulation without FWW. Gait Assessment Gait Gait Assistance Required: Contact Guard Assist Distance (Feet) 120 Able to Maintain Weight Bearing Status Yes During Gait Assistive Devices Assistive Device Gait Belt,Front Wheeled Walker Orthotic/Prosthetic Devices or Brace: No Gait Deviations General Gait Pattern Decreased Stride Length, Decreased Feet Clearance, Flexed Trunk Factors Limiting Gait Function Factors Limiting Gait Function Decreased Activity Tolerance, Poor Balance,Poor Safety Awareness Comments Gait Comments Pt needs constant cues to keep her upright posture and FWW close to her COG. Pt often places her FWW laterally during turns which create significant fall risks. PT-Balance Assessment Sitting Balance and Reactions Static Sitting Balance Ability Normal Dynamic Sitting Balance Ability Normal Standing Balance and Reactions Static Standing Balance Ability Good Dynamic Standing Balance Ability Fair Device Used FWW M5 PT-IP Objective Assessments Start: 03/14/19 08:16 Freq: NEEDED Status: Active Protocol: Document 03/14/19 11:39 (Rec: 03/14/19 11:58 [email or web address]) Orientation Orientation/Cognition Level of Alertness Alert Orientation Name,Age,Birthday,Month,Date, Year,Day of Week,Place, Situation Language Function Ability No Deficits Noted Safety Awareness Understands Safety Issues Memory Description Short Term Impaired Gross Range of Motion Upper Extremity ROM Assessment Within Functional Limits Lower Extremity ROM Assessment Within Functional Limits Strength Upper Extremity Strength Assessment Within Functional Limits Lower Extremity Strength Assessment Within Functional Limits Coordination Assessment Gross Coordination Gross Coordination WNL Sensation Assessment Sensation Gross Sensation WNL Muscle Tone Muscle Tone WNL Yes M6 PT-IP Treatment Start: 03/14/19 08:16 Freq: NEEDED Status: Active Protocol: Document 03/14/19 11:39 (Rec: 03/14/19 11:58 [email or web address]) Physical Therapy Treatment Education Education Provided Safety M7 PT-IP Assessment and Plan Start: 03/14/19 08:16 Freq: NEEDED Status: Active Protocol: Document 03/14/19 11:39 (Rec: 03/14/19 11:58 [email or web address]) PT Summary Assessment and Plan Potential Rehabilitation Potential Fair Status of Condition at Evaluation Stable Summary Impairments Strength,Balance,Cognition, Transfers,Gait,Activity Tolerance Progress Towards Goals Safe For Discharge Assessment Summary Pt is a low complexity who is admitted to due to AMS and syncope. Pt's CT scan, MRI showed negative for acute findings, but X-ray showed small L side pleural effusion. Pt's overall mobility appears to be at baseline with CGA/ CONCRETE PAVEMENT INSTALLER. Pt does have high fall risks due to her baseline dementia and poor balance. However, pt has well supported family with adequate CG training and DMEs which will be safe for pt to d/c home. Pt currently does not need skilled therapy since her PLOF has reached. Frequency of Treatment Frequency Of Treatment Discharge Recommendations To Nursing Amount of Assist Needed 1 Person Assist Discharge Recommendations PT Discharge Recommendations Home with 03/01 Assist
--- NOTE | 2019-03-14 14:06 | P.EN_ITS ---
Event Note Date Patient Seen: 03/14/19 Event Note: Patient seen and examined. Events reviewed. Patient is a 78-year- old female with a history of dementia who was brought in after being found down. The patient was up ambulating with a walker with her niece. She states that she got up last evening and lost her balance and fell. The knee said that her and has given multiple stories about what has happened. Which she does know is that she turned her back and found her lying down somewhat unresponsive and sn oring. The patient has had no further events here in the hospital. She is awake alert and talking. The etiology of her syncope is unclear. At this time will obtain orthostatic vital signs. Will continue to monitor her for Harsh or tachyarrhythmias. And will monitor closely to rule out the possibility of seizures. No further therapy indicated at this time.
--- NOTE | 2019-03-14 15:40 | OT.IP.EVAL ---
Past Medical History (Last Updated 03/14/19 @ 04:30 by ADRIANA Ramos) Choledocholithiasis (Acute) Dementia (Acute) Dermoid cyst of right ovary (Resolved ~07/2015) Endometrial polyp (Resolved ~07/2015) Hypercholesteremia (Chronic Unknown) Papillary mass of biliary tract (Acute) Surgical History (Last Updated 03/14/19 @ 04:40 by ADRIANA Ramos) History of ERCP (Acute) History of tonsillectomy Hx of bilateral salpingo-oophorectomy (Resolved 09/2015) Hx of dilation and curettage (Resolved 09/2015) Status post surgery (09/22/15) Occupational Therapy Inpatient Evaluation/Re-Eval M1 PT/OT-IP Prior Functional Status Start: 03/14/19 08:16 Freq: NEEDED Status: Active Protocol: Document 03/14/19 15:40 PJM (Rec: 03/14/19 15:59 PJM [id number]) Medical Review Prior Functional Status Medical History Reviewed Yes Diet/Fluid Consistency Regular Communication Pt has dementia at baseline. Nephew stated pt has very poor short term memory but able to communicate, answer simple questions and make needs known. Mobility and Gait Nephew stated pt has poor balance at baseline. Often showed poor judgment for depth perception who tends to reach for objects that far from her base of support. Pt uses furnitures to cruise and does not like to use walker. Pt is mostly home bound and nephew tends to hand held assist for all mobility. Activities of Daily Living and IADL's Pt's niece, nephew in law assist with all ADLs due to confusion and provide CGA due to poor balance. Family assists with all IADLs. Prior Functional Level (Other details) Pt needs 24 hr supervision to avoid wandering from home per niece. Social History Household Members family Living Arrangements House Number of Floors (Floors) One Floor Number of Stairs To Enter/Railing? 1 ISAÍAS without rail Home Environment Standard Height Toilet,Tub/ Shower Home Equipment Front Wheel Walker,Four Wheel Walker,Straight Cane,Manual Wheelchair,Shower Seat without Backrest,Grab Bars In Shower Employment Status Retired Additional Social History Comment Pt lives with her niece and nephew in law. Pt's nephew in law worked as a CG in [place] for 19 years and recently quit his job to be pt's CG. Pt's niece also recently quit her job to care for pt, so pt will have 24 hr assist. They report pt falls approx once a month at home. M2 OT-IP Current Condition Start: 03/14/19 13:58 Freq: Status: Active Protocol: Document 03/14/19 15:40 PJM (Rec: 03/14/19 15:59 PJM [id number]) Occupational Therapy Current Condition Current Condition Evaluation Date 03/14/19 Treatment Diagnosis syncopal episode at home, possible seizure vs orthostasis Diagnosis Onset Date 03/14/19 Post Operative Precautions Other Precautions high fall risk due to confusion; bed/chair alarm M3 OT- IP Subjective and Pain Start: 03/14/19 13:58 Freq: Status: Active Protocol: Document 03/14/19 15:40 PJM (Rec: 03/14/19 15:59 PJM [id number]) OT- Subjective Occupational Therapy Visit Type Type Initial Evaluation Visit Start Time 15:05 Visit Stop Time 15:40 Total Visit Minutes 35 Notes Talked to pt's niece Tata on phone re: pt's prior level of function at home. Occupational Therapy Visit Comments Patient Comments I have to go the bathroom and no one can hear me. Patient/Caregiver Goals pt wants her nephew to come pick her up and take her home OT Pain Assessment Pain When Pain Assessed After Treatment Pain Present Pain Present Denied Pain M4 OT- IP ADL's Start: 03/14/19 13:58 Freq: Status: Active Protocol: Document 03/14/19 15:40 PJM (Rec: 03/14/19 15:59 PJM [id number]) OT [id number] General Evaluation Self-Feeding Ability Standby Assistance Comments OT Self-Feeding Comments verbal cues due to confusion per HEALTH AND SAFETY CONSULTANT OT ADL-Grooming General Evaluation Grooming Ability Standby Assistance,Moderate Assistance Comments OT Grooming Comments SBA with face/hand washing and mod assist with hair brushing for thoroughness OT ADL-Oral Care Comments Oral Care Comments did not occur this session OT ADL-Dressing General Eval Upper Body Dressing Ability Moderate Assistance Lower Body Dressing Ability Maximum Assistance Areas Needing Assistance Button-Up Shirt/Blouse, Underpants/Brief,Socks OT ADL-Toileting General Evaluation Toileting Ability Total Assistance Areas Needing Assistance Perform Perineal Hygiene Comments OT Toileting Comments after incontinence of soft stool OT ADL-Bathing General Evaluation Bathing Ability Maximal Assistance Comments OT Bathing Comments per niece's report M5 OT- IP IADL's Start: 03/14/19 13:58 Freq: Status: Active Protocol: Document 03/14/19 15:40 PJM (Rec: 03/14/19 15:59 PJM [id number]) OT-Instrumental Activities of Daily Living Deficits IADL Deficits Identified Deficits Home Safety Awareness Awareness of Need for Assistance at Home Decreased Awareness Ability to Problem Solve Emergency Unable to Problem Solve Situations Home Safety Comments family provides 24 hr supervision and assists with all IADLS at home Medication Management Medication Management Caregiver Administers Money Management Money Management Caregiver Provides Assistance Meal Preparation Meal Preparation Caregiver Provides Assist Wind Plant Manager Wind Plant Manager Caregiver Provides Assist Driving Driving Caregiver Provides Assist M6 OT- IP Functional Cognition Start: 03/14/19 13:58 Freq: Status: Active Protocol: Document 03/14/19 15:40 PJM (Rec: 03/14/19 15:59 PJ [id number]) Cognitive Factors Limiting Selfcare Function Cognitive Ability Level of Alertness Alert Patient Orientation Name,Place Attention Span Ability Capable of Focused Attention, Unable to Sustain Attention Ability to Follow Commands Able to Follow One Step Commands with Increased Time, Able to Follow One Step Commands with Repetition Memory Description Immediate Impaired,Short Term Impaired Safety Awareness Decreased Recall of Precautions,Decreased Ability to Apply Precautions, Underestimates Need for Assistance Problem Solving Ability Unable to Identify Errors, Needs Assist to Identify Solutions Executive Function Ability Unable to Filter Distractions, Unable to Make Plans,Unable to Organize Plans,Unable to Remember Details,Unable to Integrate Past Experience With Present Action Abstract Thinking Ability Unable to Use Concepts,Unable to Make Generalizations,Unable to Understand Generalizations ,Unable to Draw Logical Conclusions,Unable to Apply Concepts to New Surroundings, Unable to Apply Concepts to New Situations Cognitive Comments Cognitive Assessment Comments Pt has diagnosis of dementia, requires 24 hr supervision for safety and needs verbal cues for all basic self care tasks due to confusion. OT- Vision and Hearing OT- Hearing Assessment OT- Hearing Assessment WFL OT- Vision Assessment Visual Acuity WFL,Glasses For Reading Vision Assessment Comments pt able to read wall clock accurately without glasses M7 OT- IP Mobility and Balance Start: 03/14/19 13:58 Freq: Status: Active Protocol: Document 03/14/19 15:40 PJM (Rec: 03/14/19 15:59 PJM [id number]) OT- Bed Mobility Assessment Rolling Type of Rolling Roll to Right Level of Assistance Standby Assistance Supine to Sit Supine to Sit Assist Minimal Assistance Scooting Scooting to Edge of Bed Contact Guard Assistance OT-Transfer Assessment Sit to and From Stand Sit to and from Stand Contact Guard Assistance Transfers Transfer Ability Contact Guard Assistance Technique Transfer Destination Chair,Toilet Transfer Technique Stand Step Pivot Devices Transfer Assistive Devices Gait Belt,Front Wheeled Walker OT- Gait Assessment Gait Gait Assistance Required: Contact Guard Assist Distance (Feet) 20 Assistive Devices Assistive Device Gait Belt,Front Wheeled Walker Comments Gait Ability Comments pt needs CGA to min assist to keep FWW close; pt tends to abandon FWW and reach for furniture or wall when walking ; no LOB noted this session OT- Balance Assessment Sitting Balance and Reactions Static Sitting Balance Ability Good Dynamic Sitting Balance Ability Good Standing Balance and Reactions Static Standing Balance Ability Good Dynamic Standing Balance Ability Fair Comments Other Balance Tests/Deviations/Treatment pt stood for 8 min for clean : up after bowel incontinence M8 OT- IP Objective Assessments Start: 03/14/19 13:58 Freq: Status: Active Protocol: Document 03/14/19 15:40 PJM (Rec: 03/14/19 15:59 PJM [id number]) OT Gross Range of Motion Upper Extremity Range of Motion Assessment Within Functional Limits OT Strength Upper Extremity Strength Assessment Within Functional Limits Hand Water Taxi Captain Strength Hand Dominance Right OT- Coordination Assessment Comments Coordination Comments BUE WFL for basic self care OT-Muscle Tone Assessment Muscle Tone WNL Yes OT Sensation Assessment Comments Summary Comments Pt detects lt touch in BUE's/ hands. Edema Edema Absent M9 OT- IP Assessment and Plan Start: 03/14/19 13:58 Freq: Status: Active Protocol: Document 03/14/19 15:40 PJM (Rec: 03/14/19 15:59 PJM [id number]) OT Summary Assessment and Plan Potential Analytic Complexity at Evaluation Low Summary OT Impairments Balance,Functional Mobility, Self-Feeding,Grooming,Dressing ,Toileting,Bathing,Toilet Transfers,Shower Transfers Progress Towards Goals Safe For Discharge Assessment Summary Low complexity OT assessment completed. Based on today's observations and discussion with pt's niece, who is her primary caregiver, pt appears to be at baseline level of cognitive and self are function. No OT goals identified for this admission. Anticipate pt will return home when medically stable with 24 hr assist from very supportive family. Frequency of Treatment Frequency Of Treatment Discharge Discharge Recommendations OT Discharge Recommendations Home with 03/01 Assist
[2019-03-14] MEDS: ENOXAPARIN 40 MG/0.4 ML SYRINGE SUBCUT (15:47)
[2019-03-15 00:05] VITALS: O2SAT 97
[2019-03-15 05:00] VITALS: BP 130/77; PULSE 68; RESP 16; TEMP 36.6; O2SAT 99
[2019-03-15 07:09] LABS: Add Manual Diff / Slide Review NO; Basophils Absolute Auto 100 /uL (0-100); Basophils Percent Auto 1.4 % (0-2); Eosinophils Absolute Auto 200 /uL (0-450); Eosinophils Percent Auto 3.5 % (2-4); Hemoglobin 12.7 g/dL (12.0-16.0); Lymphocytes Absolute Auto 1900 /uL (1100-4500); Lymphocytes Percent Auto 33.8 % (25-40); Mean Corpuscular HGB Conc 33.5 % (30-36); Mean Corpuscular Hemoglobin 29.6 PG (26-34); Mean Corpuscular Volume 88.2 fL (80-100); Monocytes Absolute Auto 400 /uL (0-900); Monocytes Percent Auto 7.7 % (3-14); Neutrophils Absolute Auto 3000 /uL (1500-7000); Neutrophils Percent Auto 53.6 % (50-75); Platelet Count 208 X10^3/uL (150-400); Red Cell Distribution Width 14.8 % (11.6-14.8); White Blood Cell Count 5.7 X10^3/uL (4.5-11.0)
[2019-03-15 07:16] LABS: BUN Creatinine Ratio 21.3 (6-22); Blood Urea Nitrogen 17 mg/dL (7-17); Calcium 9.6 mg/dL (8.4-10.2); Carbon Dioxide 28 mmol/L (22-32); Chloride 104 mmol/L (98-107); Estimated Glomerular Filt Rate > 60.0 mL/min (>60); Glucose 100 mg/dL (80-110); HEMOLYSIS < 15 (0-50); Potassium 4.4 mmol/L (3.4-5.1); Sodium 138 mmol/L (137-145)
[2019-03-15 07:45] VITALS: BP 132/75; PULSE 64; RESP 16; TEMP 36.4; O2SAT 96
--- NOTE | 2019-03-15 10:15 | P.DS_ITS ---
History of Present Illness History of Present Illness Date Patient Seen: 03/15/19 Chief complaint: fall at home dizziness Narrative: Ms. 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 Per report the patient's niece Debbie who is primary caregiver, the patient was sitting in a chair and she was in another room she heard noise and found the patient slumped over unresponsive. She states she sat time she began snoring heavily and moved her to the floor. Apparently she did CPR until arrival of EMS at which time the patient was noted to be breathing adequately. Debbie states that she had no prodromal symptoms of headaches, dizziness or visual changes and had been at her functional baseline. Following the syncopal episode the patient complained of dizziness and nausea. The patient has had prior episodes of dizziness has had progressive dementia requiring 24 hour care provided by her niece and nephew in law. Patient denies complaints of headaches, visual changes, difficulty chewing or swallowing. She has no chest pain or palpitations, denies shortness of breath cough or wheezing. She has no abdominal pain presently denies nausea or vomiting and has no changes in bowel or bladder habits. Upon arrival to the ER the patient is afebrile with a temperature 97.9? with a heart rate of 60, blood pressure 121/58 with respirations of 18 saturating 96% on room air. A 12 lead EKG is obtained which finds a sinus rhythm with ventricular rate of 66 without ectopy without indications of NV or ischemia. Chest x-ray was taken which shows no acute cardiopulmonary process as well as CT of the head with no intracranial pathology noted. On laboratory analysis she has white count of 6.2, hemoglobin of 12.4 hematocrit 37.1 with platelets 190. Her electrolytes are within normal limits she has a BUN of 15 and creatinine 1.0. Her nonfasting glucose is 114. Her magnesium is 2.2. Her LFTs are all within normal limits she has a negative troponin at less than 0.012 and coags are unremarkable. Requested prolactin level which is found to be elevated at 42.2. The patient is admitted to the hospital for syncopal episode of unclear etiology possible seizure. Discharge Providers Provider Date of admission: 03/14/19 02:03 Discharge Date: 03/15/19 Primary care physician: Kenna Longo DO Consults: 03/14/19 03:58 Consult to Discharge Planning Routine Comment: Consult to Occupational Therapy Evaluate & Treat Comment: Weakness, Dysequilibrium Physician Instructions: Evaluate and treat Consult to Physical Therapy Evaluate & Treat Comment: Weakness, Dysequilibrium Physician Instructions: Evaluate and Treat Discharge provider: Anabelle Ayala MD Summary Hospital Course Discharge Diagnosis: 1. Ground level fall etiology unclear 2. Dementia 3. History of massive the gallbladder ambulate 4. Hyperlipidemia 5. 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 She has significant dementia and requires 24 hour care by her niece. Her niece had sat her down in front of her loop dinner walked away and heard a noise and found the patient on the ground unresponsive confused. The patient is unable to provide any history. She was seen by physical therapy and occupational therapy per she is quite unsteady on her feet, and she is quite impulsive. During her hospital stay she was placed on telemetry was found to be bradycardic with heart rate of 49 asymptomatic while at rest but otherwise heart rate remained in the 60s and 70s. Patient had orthostatic vital signs obtained discharge. She was not orthostatic. Her blood was 123/72 with a pulse of 75 Blood pressure 159/84 with pulse of 76 sitting blood pressure 140/88 with a pulse of 81 stand the patient had no dizziness but was quite unsteady. She had no observed syncopal or seizure activity. It was felt that the patient most likely had attempted to ambulate after her niece walked away resulting in a fall. At this time no further workup is indicated. The patient will be discharged home with her niece who provides 24 hour care along with than nephew. Patient is pleasant delightful and in no acute distress has no specific complaints at this time. Exam Vital Signs (past 8 hours): - 03/15/19 05:00 03/15/19 07:45 Temperature 97.9 F 97.5 F L Pulse Rate 68 64 Respiratory Rate 16 16 Blood Pressure 130/77 132/75 Pulse Oximetry 99 96 Oxygen Delivery Method Room Air Oxygen Flow Rate 0 Narrative Exam Narrative: Pleasant elderly female confused but in no acute distress Lungs: Clear to auscultation Cardiac exam: Regular rate and rhythm normal S1-S2 a 2/6 systolic ejection murmur Abdomen: Soft nontender nondistended Extremities: No edema Neuro exam: The patient is confused but does respond appropriately. She is awake and alert. She is up with a walker and quite unsteady and at times somewhat impulsive. Objective Labs Result Diagrams: 03/15/19 06:50 03/15/19 06:50 Labs: Laboratory Results - last 24 hr 03/15/19 03/15/19 06:50 06:50 WBC 5.7 RBC 4.30 Hgb 12.7 Hct 38.0 MCV 88.2 MCH 29.6 MCHC 33.5 RDW 14.8 Plt Count 208 Neut % (Auto) 53.6 Lymph % (Auto) 33.8 [place] % (Auto) 7.7 Eos % (Auto) 3.5 Baso % (Auto) 1.4 Neut # (Auto) 3000 Lymph # (Auto) 1900 [place] # (Auto) 400 Eos # (Auto) 200 Baso # (Auto) 100 Sodium 138 Potassium 4.4 Chloride 104 Carbon Dioxide 28 BUN 17 Creatinine 0.80 Estimated GFR > 60.0 BUN/Creatinine Ratio 21.3 Glucose 100 Calcium 9.6 Discharge Plan Discharge Plan Discharge Problem: Syncope Patient Disposition: Home Discharge Med Rec/Prescriptions Prescriptions: Continued aspirin 81 MG tablet,delayed release (DR/EC) 81 mg PO QDAY Qty: 0 RF: 0 quetiapine 25 mg Tablet 25 mg PO BEDTIME RF: 0 donepezil tablet 10 mg PO DAILY RF: 0 Follow up/Referrals: Kenna Longo DO [Primary Care Provider] - Provider Discharge Instructions Diet: Regular Activity: Up with a walker and assistance Discharge Data Primary Care Provider: Kenna Longo Attending Provider: Ayan Dickson Admit Date/Time: 03/14/19 02:03 Quality VTE Deep Vein Thrombosis/Pulmonary Embolism Present on Admission: Yes
[2019-03-15 10:20] VITALS: BP 123/72; BP 140/88; BP 159/84; PULSE 75; PULSE 76; PULSE 81
== END 2019-03-15 11:15 | disposition home or self-care (01) ==
LOC: ED 03-14 00:30 → AC 03-14 02:04
PROVIDERS: Internal Medicine; Admitting Provider Nurse Practitioner Adult Health; Emergency Provider Emergency Medicine; Family Provider Family Medicine; PCP Family Medicine; Visit Provider Nurse Practitioner Adult Health
DX: R55 Syncope and collapse (principal); W07.XXXA Fall from chair, initial encounter; F03.90 Unspecified dementia, unspecified severity, without behavioral disturbance, psychotic disturbance, mood disturbance, and anxiety; E78.5 Hyperlipidemia, unspecified
CPT/HCPCS: 36415; 70450; 70553; 71045; 80048; 80053; 82550; 82553; 83735; 84146; 84484; 85025; 85610; 93005; 96372; 97161; 97165; 97530; 97535; 99283; 99291; G0378; A9579; J1650

== ENCOUNTER 2019-05-18 09:29 | Emergency (ER) | payer OTHER, SELFPAY ==
[2019-03-14 02:45] VITALS: BMI 24.9
[2019-05-18] VITALS (7 sets, daily range): BP systolic 113–143; BP diastolic 59–100; PULSE 67–95; RESP 12–23; TEMP 36.9; O2SAT 98–100; BMI 25.2
--- NOTE | 2019-05-18 09:39 | DI.CT.S_ITS ---
PROCEDURE: CT HEAD/BRAIN WO CON INDICATIONS: stroke TECHNIQUE: Noncontrast 4.5 mm thick angled axial sections acquired from the foramen magnum to the vertex, with coronal and sagittal reformats. For radiation dose reduction, the following was used: automated exposure control, adjustment of mA and/or kV according to patient size. COMPARISON: [facility], CT, CT HEAD/BRAIN WO CON, 03/13/2019, 23:32. [facility], CT, HEAD WITHOUT CONTRAST, 07/09/2016, 18:45. FINDINGS: Image quality: Excellent. CSF spaces: Basal cisterns are patent. No extra-axial fluid collections. The ventricles are symmetric in size and shape. Brain: No intracranial masses or but there is left hemispheric brain parenchymal hemorrhage, centered within the deep white matter of the parietal lobe including the parieto-occipital junction, with overall dimensions 7.5 cm AP, 4.4 cm transversely with a craniocaudad length of 4.8 cm. No intraventricular or subarachnoid hemorrhage is found. There is mild midline shift from left to right, only by approximately 4 mm. There is superimposed cerebral volume loss for age, with resultant ventricular and sulcal prominence. There are periventricular and deep white matter chronic small vessel ischemic changes. There is intracranial internal carotid artery atherosclerosis. Skull and face: Calvarium and visualized facial bones appear intact, without suspicious lesions. Sinuses: Visualized sinuses and mastoids are clear. IMPRESSION: Large deep white matter hemorrhage in an area previously normal 03/13/19, involving the left parietal deep white matter and occipital parietal junction region, measuring up to 7.5 x 4.4 x 4.8 cm with a mild degree of [id number] mass effect. Contralateral hydrocephalus, intraventricular hemorrhage, or subarachnoid hemorrhage has not developed. Findings immediately called to the emergency room physician caring for the patient at 10:10. Dictated by: Randolph Rosenthal M.D. on 05/18/2019 at 10:09 Approved by: Randolph Rosenthal M.D. on 05/18/2019 at 10:15
--- NOTE | 2019-05-18 09:44 | ED.AMS ---
HPI - Altered Mental Status General Chief Complaint: Altered Mental Status Stated Complaint: Possible CVA Time Seen by Provider: 05/18/19 09:38 Source: EMS Mode of arrival: EMS Limitations: altered mental status History of Present Illness HPI narrative: Patient is brought to the emergency department by EMS after being found by family to be. Patient's knee states that the symptoms started yesterday. Patient seemed like she was using her right side much and seem to not be is articulate. Patient's niece is a caregiver and she and her decided to watch the patient overnight. However, when they tried to bring the patient to the dining room for breakfast this morning, she had trouble walking. When they sat her down at the table she just stared blankly instead of taking an interest in her coffee, which she normally likes. She also did not seem to be answering questions much, which was a deterioration from yesterday. Patient is otherwise healthy. She has no history of hypertension, diabetes, or cardiac issues. She does have some mild dementia according to family. No history of CVA. Patient takes aspirin but is otherwise not anticoagulated. No other complaints at this time. The patient is a retired nurse. All history is via medics and the patient's niece, as patient is not able to give any information herself. Related Data Home Medications Medication Instructions Recorded Confirmed quetiapine 25 mg PO BEDTIME 03/14/19 05/18/19 donepezil 10 mg PO BEDTIME 05/18/19 05/18/19 Previous Rx's Medication Instructions Recorded diabled parking permit #1 ea 04/02/19 Allergies Allergy/AdvReac Type Severity Reaction Status Date / Time shellfish derived Allergy Mild HIVES Verified 04/02/19 08:53 [SHELLFISH DERIVED] Review of Systems Review of Systems ROS Unobtainable: Unobtainable due to mental condition Patient History Medical History Choledocholithiasis (Acute) Dementia (Acute) Dermoid cyst of right ovary (Resolved ~07/2015) Endometrial polyp (Resolved ~07/2015) Hypercholesteremia (Chronic Unknown) Papillary mass of biliary tract (Acute) Surgical History History of ERCP (Acute) History of tonsillectomy Hx of bilateral salpingo-oophorectomy (Resolved 09/2015) Hx of dilation and curettage (Resolved 09/2015) Status post surgery (09/22/15) Family History Brother Hypertension Father No problems noted. Mother No problems noted. Social History marital status: household members: family Smoking Status: Never smoker alcohol intake: never substance use type: does not use Smoking Status: Never smoker alcohol intake frequency: 0-2 drinks per day Substance Use Type: does not use Exam Initial Vital Signs Initial Vital Signs: Vital Signs Temperature 98.5 F 05/18/19 09:29 Pulse Rate 70 05/18/19 09:29 Respiratory Rate 12 05/18/19 09:29 Blood Pressure 113/100 H 05/18/19 09:29 Pulse Oximetry 100 05/18/19 09:29 Const General: cooperative and well developed Nutritional Appearance: well nourished Orientation: alert and awake [facility] Head: normocephalic and atraumatic Ears: external ears normal and TM's normal bilaterally Nose: external nose normal and No nasal discharge Face and sinus: face symmetric and No dry mucous membranes Mouth: oral mucosae normal and moist mucous membranes Teeth and gingiva: dentition normal Eyes General: appearance normal, both eyes and all related structures Eyelids: eyelids normal Conjunctivae: conjunctivae normal Sclera: sclerae normal Pupils: PERRL Neck Neck: normal visual inspection, trachea midline, No lymphadenopathy, No midline deformity and No JVD Lymphatic: No lymphedema Chest Chest: normal inspection of the chest Resp Effort & Inspection: normal respiratory effort, able to speak in complete sentences, no respiratory distress and no use of accessory muscles Auscultation: clear to auscultation bilaterally, no rales, no rhonchi and no wheezes Cardio Rate: regular rate Rhythm: regular rhythm Heart Sounds: no click, no gallops, no murmurs and no rubs Pulses: normal peripheral pulses GI Inspection: non-distended Palpation: soft, no hepatosplenomegaly, No guarding, No pulsatile mass and No tender Back/Spine/Pelvis Back: No CVA tenderness Cervical Spine: cervical ROM normal and No pain with cervical ROM Thoracic/Lumbar Spine: thoracic and lumbar spine normal to inspection Skin General: no rashes or lesions noted, No jaundice and No petechiae Neuro General: awake Other: Patient is largely nonverbal, though she does answer, sometimes inappropriately, ?yes? or ?no?. She cannot follow commands. The patient's gaze is deviated to the left though she will look to the midline. However, she does not look to the right. Patient spontaneously moves her right arm, but does not use her hand much. She moves the left arm and leg grossly normally. She is not noted to move her right leg. Sensation is grossly intact, though once again, the patient is not able to actively take part in the neurologic exam, due to her altered mental status. There is no facial droop. No drooling. Extrem General: full ROM, no clubbing, cyanosis or edema, no pedal edema and no calf tenderness Psych Appearance: well kempt Mental Status: mental status grossly normal Attitude: cooperative Thought Content: normal and suicidality Judgment: judgment good Course Course Course Narrative: This patient was evaluated by myself in the emergency department immediately upon arrival with EMS. She was sent for a CT of the head without contrast, which did show a large posterior hemorrhage intraparenchymally on the left with mild midline shift. I spoke with Dr. Brenden Staton of the [facility] Stroke team, and she did accept the patient transfer. She requested that we treat acute patient's blood pressure the you know 160/110. The patient's blood pressure had been in the 130s to 140s over 60s to 70s for most of her stay in the emergency department after initially having a higher diastolic reading at 113/100. I spoke with the patient's family to inform them of the hemorrhage that the patient had had, as well as her need for transfer. They expressed understanding. Orders Ordered: ED Orders 05/18/19 09:39 CT head/brain wo con Stat 05/18/19 09:55 Complete Blood Count AUTO DIFF Stat Comprehensive Metabolic Panel Stat Troponin & CK Cardiac Panel Stat 05/18/19 10:49 Urinalysis and Microscopic Stat Discontinued Medications Sodium Chloride (Normal Saline 0.9%) 1,000 mls @ 1,000 mls/hr IV BOLUS ONE Stop: 05/18/19 10:38 Last Admin: 05/18/19 10:40 Dose: 125 mls/hr Documented by: TETO Vital Signs Vital signs: Vital Signs - 8 hr 05/18/19 09:29 05/18/19 10:11 05/18/19 10:20 Temperature 98.5 F Pulse Rate 70 70 72 Respiratory Rate 12 15 12 Blood Pressure 113/100 H Blood Pressure [Right Arm] 122/62 143/59 H Pulse Oximetry 100 98 100 05/18/19 10:32 05/18/19 10:49 Temperature Pulse Rate 67 95 H Respiratory Rate 12 23 Blood Pressure Blood Pressure [Right Arm] 130/74 130/79 Pulse Oximetry 100 100 MDM - Altered Mental Status Medical Records Attestation: I reviewed the patient's medical records. Lab Data Attestation: I reviewed the patient's lab results. Result diagrams: 05/18/19 09:55 05/18/19 09:55 Labs: Lab Results 05/18/19 05/18/19 Range/Units 09:55 09:55 WBC 6.6 (4.5-11.0) X10^3/uL RBC 4.29 (4.0-5.2) X10^6/uL Hgb 12.7 (12.0-16.0) g/dL Hct 37.7 (36-46) % MCV 87.9 (80-100) fL MCH 29.5 (26-34) PG MCHC 33.6 (30-36) % RDW 14.4 (11.6-14.8) % Plt Count 205 (150-400) X10^3/uL Neut % (Auto) 64.8 (50-75) % Lymph % (Auto) 24.1 L (25-40) % Cassia % (Auto) 8.9 (3-14) % Eos % (Auto) 0.9 L (2-4) % Baso % (Auto) 1.3 (0-2) % Neut # (Auto) 4300 (5928-4593) /uL Lymph # (Auto) 1600 (6013-3389) /uL Cassia # (Auto) 600 (0-900) /uL Eos # (Auto) 100 (0-450) /uL Baso # (Auto) 100 (0-100) /uL Sodium 134 L (137-145) mmol/L Potassium 4.2 (3.4-5.1) mmol/L Chloride 100 (98-107) mmol/L Carbon Dioxide 27 (22-32) mmol/L BUN 15 (7-17) mg/dL Creatinine 0.90 (0.52-1.04) mg/dL Estimated GFR > 60.0 (>60) mL/min BUN/Creatinine Ratio 16.7 (6-22) Glucose 119 H (80-110) mg/dL Calcium 9.5 (8.4-10.2) mg/dL Total Bilirubin 0.8 (0.2-1.3) mg/dL AST 21 (14-36) IU/L ALT 10 (<35) IU/L Alkaline Phosphatase 81 (38-126) U/L Total Creatine Kinase 69 (30-135) U/L CK-MB (CK-2) TNP CK-MB (CK-2) Rel Index TNP Troponin I < 0.012 (0.01-0.034) ng/mL Total Protein 7.8 (6.3-8.2) g/dL Albumin 4.2 (3.5-5.0) g/dL Globulin 3.6 (1.7-4.1) g/dL Albumin/Globulin Ratio 1.2 (1.0-2.8) Point of Care Testing Glucose POC [address] scan - head: Radiologist's impression: PROCEDURE: CT HEAD/BRAIN WO CON INDICATIONS: stroke TECHNIQUE: Noncontrast 4.5 mm thick angled axial sections acquired from the foramen magnum to the vertex, with coronal and sagittal reformats. For radiation dose reduction, the following was used: automated exposure control, adjustment of mA and/or kV according to patient size. COMPARISON: [facility], CT, CT HEAD/BRAIN WO CON, 03/13/2019, 23:32. [facility], CT, HEAD WITHOUT CONTRAST, 07/09/2016, 18:45. FINDINGS: Image quality: Excellent. CSF spaces: Basal cisterns are patent. No extra-axial fluid collections. The ventricles are symmetric in size and shape. Brain: No intracranial masses or but there is left hemispheric brain parenchymal hemorrhage, centered within the deep white matter of the parietal lobe including the parieto-occipital junction, with overall dimensions 7.5 cm AP, 4.4 cm transversely with a craniocaudad length of 4.8 cm. No intraventricular or subarachnoid hemorrhage is found. There is mild midline shift from left to right, only by approximately 4 mm. There is superimposed cerebral volume loss for age, with resultant ventricular and sulcal prominence. There are periventricular and deep white matter chronic small vessel ischemic changes. There is intracranial internal carotid artery atherosclerosis. Skull and face: Calvarium and visualized facial bones appear intact, without suspicious lesions. Sinuses: Visualized sinuses and mastoids are clear. IMPRESSION: Large deep white matter hemorrhage in an area previously normal 03/13/19, involving the left parietal deep white matter and occipital parietal junction region, measuring up to 7.5 x 4.4 x 4.8 cm with a mild degree of gibd-vh-[id number] mass effect. Contralateral hydrocephalus, intraventricular hemorrhage, or subarachnoid hemorrhage has not developed. Findings immediately called to the emergency room physician caring for the patient at 10:10. Dictated by: Randolph Rosenthal M.D. on 05/18/2019 at 10:09 Approved by: Randolph Rosenthal M.D. on 05/18/2019 at 10:15 Discharge Plan Departure Prescriptions: No Action (DME) diabled parking permit Qty: 1 RF: 0 quetiapine 25 mg Tablet 25 mg PO BEDTIME RF: 0 donepezil 5 mg Tablet 10 mg PO BEDTIME RF: 0
[2019-05-18 10:11] LABS: Add Manual Diff / Slide Review NO; Basophils Absolute Auto 100 /uL (0-100); Basophils Percent Auto 1.3 % (0-2); Eosinophils Absolute Auto 100 /uL (0-450); Eosinophils Percent Auto 0.9 % (2-4); Hematocrit 37.7 % (36-46); Hemoglobin 12.7 g/dL (12.0-16.0); Lymphocytes Absolute Auto 1600 /uL (1100-4500); Lymphocytes Percent Auto 24.1 % (25-40); Mean Corpuscular HGB Conc 33.6 % (30-36); Mean Corpuscular Hemoglobin 29.5 PG (26-34); Mean Corpuscular Volume 87.9 fL (80-100); Monocytes Absolute Auto 600 /uL (0-900); Monocytes Percent Auto 8.9 % (3-14); Neutrophils Absolute Auto 4300 /uL (1500-7000); Neutrophils Percent Auto 64.8 % (50-75); Platelet Count 205 X10^3/uL (150-400); Red Blood Cell Count 4.29 X10^6/uL (4.0-5.2); Red Cell Distribution Width 14.4 % (11.6-14.8); White Blood Cell Count 6.6 X10^3/uL (4.5-11.0)
--- NOTE | 2019-05-18 10:13 | PC.NURSE ---
Upon arrival to ER and medic field assessment, pt is unable to participate in the [facility] stroke assessment. pt is having non purposeful movement of her extremities, right sided neglect. pt has been having gradual symptoms per family. not following any commands.appears to have a small right sided facial droop. pt is able to answer one word answers but the are not in relation to any questions asked. daughter reports last known normal was between lunch and dinner. daughter had to hand fed her dinner.
[2019-05-18 10:19] LABS: Alanine Aminotransferase 10 IU/L (<35); Albumin 4.2 g/dL (3.5-5.0); Albumin Globulin Ratio 1.2 (1.0-2.8); Alkaline Phosphatase 81 U/L (38-126); Aspartate Aminotransferase 21 IU/L (14-36); BUN Creatinine Ratio 16.7 (6-22); Bilirubin Total 0.8 mg/dL (0.2-1.3); Blood Urea Nitrogen 15 mg/dL (7-17); Calcium 9.5 mg/dL (8.4-10.2); Carbon Dioxide 27 mmol/L (22-32); Chloride 100 mmol/L (98-107); Creatine Kinase 69 U/L (30-135); Estimated Glomerular Filt Rate > 60.0 mL/min (>60); Globulin 3.6 g/dL (1.7-4.1); Glucose 119 mg/dL (80-110); HEMOLYSIS < 15 (0-50); Potassium 4.2 mmol/L (3.4-5.1); Sodium 134 mmol/L (137-145); Total Protein 7.8 g/dL (6.3-8.2)
[2019-05-18 10:31] LABS: Troponin I < 0.012 ng/mL (0.01-0.034)
[2019-05-18] MEDS: SODIUM CHLORIDE 0.9% 1,000 ML 125 ML IV (10:40)
--- NOTE | 2019-05-18 10:57 | PC.NURSE ---
continues with non purposeful movement of extremities. speech is garbled. not making any sense. family at bedside.
[2019-05-18 10:59] LABS: Appearance Urine UA CLEAR; Bilirubin Urine UA NEGATIVE (NEGATIVE); Color Urine UA YELLOW; Glucose Urine UA NEGATIVE (Negative); Ketones Urine UA NEGATIVE (NEGATIVE); Leukocyte Esterase Urine UA NEGATIVE (NEGATIVE); Nitrite Urine UA POSITIVE (Negative); Occult Blood Urine UA 2+ (Negative); Protein Urine UA NEGATIVE (Negative); Urobilinogen Urine UA 0.2 E.U./dL (0.2)
[2019-05-18 11:10] LABS: Bacteria Urine Many (>30); Culture Indicated Urine Specimen Cultured; RBC Urine 5-10/HPF (0-5/HPF); WBC Urine 5-10/HPF (0-5/HPF)
== END 2019-05-18 11:06 | disposition short-term general hospital (02) ==
PROVIDERS: Emergency Provider Emergency Medicine; Family Provider Family Medicine; PCP Family Medicine
DX: I62.9 Nontraumatic intracranial hemorrhage, unspecified (principal); I10 Essential (primary) hypertension
CPT/HCPCS: 36415; 51701; 70450; 80053; 81001; 82550; 84484; 85025; 87086; 87186; 93005; 99284; 99285

== ENCOUNTER 2019-08-13 14:49 | Outpatient (CLI) | payer OTHER, SELFPAY ==
[2019-03-14 02:45] VITALS: BMI 24.9
--- NOTE | 2019-08-21 14:31 | PT.OIE ---
Current Diagnoses Nontraumatic intracerebral hemorrhage, unspecified (08/13/19) Past Medical History (Last Reviewed 07/24/19 @ 10:47 by Boone Brar DO) Choledocholithiasis (Acute) Dementia (Acute) Dermoid cyst of right ovary (Resolved ~07/2015) Endometrial polyp (Resolved ~07/2015) Hemorrhagic cerebrovascular accident (CVA) (Acute) Hypercholesteremia (Chronic Unknown) Hypertension (Acute) Papillary mass of biliary tract (Acute) Past Surgical History (Last Reviewed 05/18/19 @ 11:02 by Honey Bowers MD) History of ERCP (Acute) History of tonsillectomy Hx of bilateral salpingo-oophorectomy (Resolved 09/2015) Hx of dilation and curettage (Resolved 09/2015) Status post surgery (09/22/15) Visit Care Team Role Provider Type Kenna Longo DO Family Provider Physician Specialty: [facility] Practice Address: [address] [place] [address], [address], [facility] Email: [email or web address] Boone Brar DO Attending Provider Physician Primary Care Provider Referring Provider Specialty: [facility] Address: [address] [place] [address], [address] Email: [email or web address] Physical Therapy Initial Evaluation PT-OP-A Visit Information Start: 08/14/19 08:20 Freq: Status: Active Protocol: Document 08/13/19 15:00 IJS (Rec: 08/21/19 14:31 [facility] [email or web address]) Out-Patient Physical Therapy Visit Information Visit Information Visit Type Initial Evaluation Visit Note Patient being seen for one time visit manual wheelchair evaluation. 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 This resulted in profound weakness right greater than left, some right side neglect, and inability to ambulate. She requires 24/7 and total care. 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 Current Functional Impairments (Reported) Functional Limitations- ADL's Incontinent, primarily non- verbal generally says yes to everything asked. Total care for feeding, dressing, bathing and mobility. Functional Limitations- Mobility/Gait Only able to take 3 steps with max assist of a care trainer. Max A for transfers and unable to propel herself in her manual wheelchair. Would be unsafe to try a power chair as Becky has the right side neglect and does not follow commands well. PT-OP-C Subjective Start: 08/14/19 08:20 Freq: Status: Active Protocol: Document 08/13/19 15:00 IJS (Rec: 08/21/19 14:31 IJS [email or web address]) OP-PT Subjective Patient Comments Patient Comments Primaily non-verbal since the CVA. PT-OP-D Balance Start: 08/14/19 08:20 Freq: Status: Active Protocol: Document 08/13/19 15:00 IJS (Rec: 08/21/19 14:31 IJS [email or web address]) OP-PT Balance Assessment Sitting Balance Static Sitting Balance Ability Good Dynamic Sitting Balance Ability Fair Sitting Balance Comments Needs back support for good sitting balance. She does not initiate weight shifting or pressure relief techniques. Standing Balance Static Standing Balance Ability Poor Dynamic Standing Balance Ability Poor Device Used Caregiver, chair behind and gait belt Standing Balance Comments Not a functional ambulator and requires max asssist to stand . Sherman Fall Scale Assessment History of Falling (Immediate or No Previous) Secondary Diagnosis (More Than 2 Medical Yes Diagnoses in Chart) Ambulatory Aid None/bed rest/nurse assist IV/Heparin Lock No Gait/Transferring Impaired Mental Status Forgets limitations Score Score 50 Risk Level/Action Risk Level High Fall Risk Action Implement High Fall Risk Precautions Copyright Permission PT-OP-G Mobility & Gait Start: 08/14/19 08:20 Freq: Status: Active Protocol: Document 08/13/19 15:00 IJS (Rec: 08/21/19 14:31 IJS [email or web address]) OP Mobility Evaluation Bed Mobility Rolling Max assist, patient does not initiate mobility. Transfers Sit to Stand Max assist Wheelchair Management Type of Wheelchair Manual Assessment Details Max assist PT-OP-J Posture/Palpation/Skin Start: 08/14/19 08:20 Freq: Status: Active Protocol: Document 08/13/19 15:00 IJS (Rec: 08/21/19 14:31 IJS [email or web address]) Posture Evaluation Position Sitting Evaluation View Anterior Head/C-Spine Posture Rotated Left,Forward Head Shoulder Posture (L) Rounded,(R) Rounded Pelvis Posture Posterior Tilted Weight Distribution Balanced Hip Posture (L) Neutral,(R) Neutral Knee Posture (L) Neutral,(R) Neutral Skin Assessment Other Assessments Skin Assessment Comments No history of skin breakdown PT-OP-K Range of Motion Start: 08/14/19 08:20 Freq: Status: Active Protocol: Document 08/13/19 15:00 IJS (Rec: 08/21/19 14:31 IJS [email or web address]) Shoulder Goniometric Range of Motion Shoulder Right Shoulder ROM WFL Yes Testing Position Sitting Flexion 120 Left Shoulder ROM WFL Yes Testing Position Sitting Flexion 120 PT-OP-M Strength Start: 08/14/19 08:20 Freq: Status: Active Protocol: Document 08/13/19 15:00 IJS (Rec: 08/21/19 14:31 IJS [email or web address]) Knee Strength Knee Manual Muscle Testing Right Extension (L3) 2 Poor Comments Patient does not initiate mobility and will push her back into extension and slide her hips to the front of the chair creating a fall risk. 24/7 care required for safety. Left Extension (L3) 3 Fair Comments Does not follow commands to manual muscle testing. Range of motion within functional limits PROM, AAROM with grimising pain at endrange of left shoulder flexion. PT-OP-T Assessment and Plan Start: 08/14/19 08:20 Freq: Status: Active Protocol: Document 08/13/19 15:00 IJS (Rec: 08/21/19 14:31 IJS [email or web address]) Physical Therapy Assessment Rehab Potential Rehabilitation Potential Poor Evaluation Complexity Number of Personal Factors/Comorbidities 1-2 Number of Body Systems Impaired 1-2 Clinical Presentation at Evaluation Stable Other Concerns Barriers to Rehabilitation Diagnosis of Dementia that interfers with self care tasks . Goals One Short Term Goal (STG) Evaluate and fit with custom manual wheelchair for home and outdoor use. STG Duration 6 weeks Assessment Summary Assessment Patient is total care and is 5 ' weighing 119# so her caregivers are able to attend to her needs. She does have 24/7 care and is appropriate for use of a manual wheelchair for her mobility needs. Physical Therapy Plan Frequency and Duration Frequency of Treatment evaluation only Discharge Physical Therapy Discharge Reasons Goals Met Discharge Comments Evaluation complete and being processed by the DME provider to obtain her manual wheelchair.
== END 2019-08-23 08:05 | disposition home or self-care (01) ==
LOC: PHYS 14:51
PROVIDERS: Family Provider Family Medicine; PCP Family Medicine; Referring Provider Family Medicine; Visit Provider Family Medicine
DX: I61.9 Nontraumatic intracerebral hemorrhage, unspecified (principal)
CPT/HCPCS: 97161

== ENCOUNTER → 2020-08-25 13:08 | Outpatient (CLI) | payer MEDICARE, SELFPAY ==
[2019-03-14 02:45] VITALS: BMI 24.9
[2020-08-25] MEDS: COVID-19 VACC, Ad26(JANSSEN)/PF 0.5 ML IM (13:20)
== END ==
PROVIDERS: Family Provider Family Medicine; PCP Family Medicine; Visit Provider Internal Medicine
DX: Z23 Encounter for immunization (principal)
CPT/HCPCS: 0031A; 91303